=== PATIENT | female | born 1975 | race Caucasian/White ===

== ENCOUNTER 2019-08-29 11:57 | Emergency (ER) | payer OTHER, SELFPAY ==
[2019-08-29 12:00] VITALS: BP 150/97; PULSE 88; RESP 13; TEMP 36.7; O2SAT 98
[2019-08-29 15:00] VITALS: BP 154/96; PULSE 87; RESP 20; O2SAT 96
--- NOTE | 2019-08-29 15:52 | DI.CT.S_ITS ---
PROCEDURE: CT HEAD/BRAIN WO CON INDICATIONS: sudden vertigo TECHNIQUE: Noncontrast 4.5 mm thick angled axial sections acquired from the foramen magnum to the vertex, with coronal and sagittal reformats. For radiation dose reduction, the following was used: automated exposure control, adjustment of mA and/or kV according to patient size. COMPARISON: None. FINDINGS: Image quality: Excellent. CSF spaces: Basal cisterns are patent. No extra-axial fluid collections. Ventricles are normal in size and shape. Brain: No midline shift. No intracranial masses or hemorrhage. Blackmon-white matter interface is normal. Skull and face: Calvarium and visualized facial bones are intact, without suspicious lesions. Sinuses: Visualized sinuses and mastoids are clear. No middle ear fluid is seen. IMPRESSION: Normal noncontrast head CT, without an imaging explanation for patient's presenting symptoms of sudden vertigo. Dictated by: Mauricio Thomas M.D. on 08/29/2019 at 15:07 Approved by: Mauricio Thomas M.D. on 08/29/2019 at 15:08
[2019-08-29] MEDS: MECLIZINE HCL 12.5 MG TABLET 50 MG PO (16:21)
[2019-08-29 16:24] LABS: Add Manual Diff / Slide Review NO; Basophils Absolute Auto 100 /uL (0-100); Basophils Percent Auto 0.8 % (0-2); Eosinophils Absolute Auto 200 /uL (0-450); Eosinophils Percent Auto 1.4 % (2-4); Hematocrit 42.3 % (36-46); Hemoglobin 14.3 g/dL (12.0-16.0); Lymphocytes Absolute Auto 4600 /uL (1100-4500); Lymphocytes Percent Auto 41.5 % (25-40); Mean Corpuscular HGB Conc 33.8 % (30-36); Mean Corpuscular Hemoglobin 30.2 PG (26-34); Mean Corpuscular Volume 89.1 fL (80-100); Monocytes Absolute Auto 600 /uL (0-900); Monocytes Percent Auto 5.8 % (3-14); Neutrophils Absolute Auto 5600 /uL (1500-7000); Neutrophils Percent Auto 50.5 % (50-75); Platelet Count 369 X10^3/uL (150-400); Red Blood Cell Count 4.74 X10^6/uL (4.0-5.2); Red Cell Distribution Width 13.5 % (11.6-14.8); White Blood Cell Count 11.2 X10^3/uL (4.5-11.0)
[2019-08-29 16:39] LABS: Alanine Aminotransferase 24 IU/L (9-52); Albumin 4.6 g/dL (3.5-5.0); Albumin Globulin Ratio 1.2 (1.0-2.8); Alkaline Phosphatase 66 U/L (38-126); Aspartate Aminotransferase 27 IU/L (14-36); Bilirubin Total 0.3 mg/dL (0.2-1.3); Blood Urea Nitrogen 14 mg/dL (7-17); Carbon Dioxide 27 mmol/L (22-32); Chloride 103 mmol/L (98-107); Creatine Kinase 70 U/L (30-135); Estimated Glomerular Filt Rate > 60.0 mL/min (>60); Globulin 3.7 g/dL (1.7-4.1); Glucose 93 mg/dL (70-100); HEMOLYSIS < 15 (0-50); Potassium 4.1 mmol/L (3.4-5.1); Sodium 139 mmol/L (137-145); Total Protein 8.3 g/dL (6.3-8.2)
[2019-08-29 16:50] LABS: Troponin I < 0.012 ng/mL (0.01-0.034)
[2019-08-29 17:31] LABS: Influenza A and B by PCR Rapid Negative (Negative)
--- NOTE | 2019-08-29 17:35 | ED_ITS ---
HPI - Dizziness <VIRI Bills - Last Filed: 08/29/19 18:06> General Chief Complaint: Dizziness Stated Complaint: Dizziness,lighthead,fatigue Time Seen by Provider: 08/29/19 15:18 Source: patient and family Mode of arrival: Ambulatory Limitations: no limitations History of Present Illness HPI Narrative: The patient is a 44-year-old female nonsmoker with history of insomnia and sleep apnea who presents with a chief complaint of spinning sensation and dizziness that had sudden onset on Thursday. She states the spinning sensation occurs when she turns her head, or has a change in position. 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 She does state that she has chronic right ear issues and has a history of right ear infections. She does not have any ear pain at this point time. She denies any chest pain, shortness of breath, fever nausea vomiting or diarrhea. She denies any sore throat. The patient states that her she does have a family history of stroke, but notes no neurological deficit, states dizziness on occasion. She denies any slurred speech. Her is with her and states that she has been acting normal. Related Data Home Medications Medication Instructions Recorded Confirmed losartan-hydrochlorothiazide 1 tab PO DAILY 08/29/19 Previous Rx's Medication Instructions Recorded meclizine 50 mg PO TID PRN #20 tab 08/29/19 Allergies Allergy/AdvReac Type Severity Reaction Status Date / Time No Known Drug Allergies Allergy Unverified 08/03/19 14:41 Review of Systems <VIRI Bills - Last Filed: 08/29/19 18:06> Review of Systems Narrative: GENERAL: Denies chills, fatigue, malaise, fever, sweats. HEENT: See HPI RESPIRATORY: Denies dyspnea, cough, wheezing, hemoptysis, sputum. CARDIOVASCULAR: Denies chest pain, palpitations, orthopnea, edema, GASTROINTESTINAL: Denies nausea, vomiting, abdominal pain, diarrhea, constipation, melena. : Denies dysuria, frequency, incontinence, hematuria, urinary retention. MUSCULOSKELETAL: denies weakness, joint pain, or bony pain SKIN: Denies rash, skin lesions, or other NEUROLOGIC: See HPI PSYCHIATRIC: No concerning psychosocial issues. 12 point review of systems is negative except for those stated above PFSH <VIRI Bills - Last Filed: 08/29/19 18:06> Social History Smoking Status: Former smoker Exam <Leny BarahonaANN-BC - Last Filed: 08/29/19 18:06> Narrative Exam Narrative: GENERAL: This is a well-nourished, well-developed patient, in mild distress. HEAD: Atraumatic. Normocephalic. No temporal or scalp tenderness. EYES: Pupils equal round and reactive. Extraocular motions intact. No scleral icterus. No injection or drainage. ENT: Nose without bleeding, purulent drainage or septal hematoma. Throat without erythema, tonsillar hypertrophy or exudate. Uvula midline. Airway patent. Bilateral TMs tense, but pearly blackmon. No noted abnormality bilateral ear canals. NECK: Trachea midline. No JVD or lymphadenopathy. Supple, nontender, no meningeal signs. CARDIOVASCULAR: Regular rate and rhythm without murmurs, gallops, or rubs. RESPIRATORY: Clear to auscultation. Breath sounds equal bilaterally. No wheezes, rales, or rhonchi. No cough. No increased respiratory effort. No accessory muscle use. GASTROINTESTINAL: Abdomen soft, non-tender, nondistended. No hepato- splenomegaly, or palpable masses. No guarding. EXTREMITIES: No clubbing, cyanosis, or edema. No joint tenderness, effusion, or edema noted. BACK: Nontender without deformity or crepitance. No flank tenderness. NEURO: AOx3. No slurred speech. Clear speech. Cranial nerves grossly intact. Strength is equal upper and lower extremities bilaterally. Steady gait. Negative Romberg. SKIN: No rash or erythema on visible skin. Initial Vital Signs Initial Vital Signs: Vital Signs Temperature 98.1 F 08/29/19 12:00 Pulse Rate 88 08/29/19 12:00 Respiratory Rate 13 08/29/19 12:00 Blood Pressure 150/97 H 08/29/19 12:00 Pulse Oximetry 98 08/29/19 12:00 <Leny Samuels DO - Last Filed: 08/29/19 19:46> Initial Vital Signs Initial Vital Signs: Vital Signs Temperature 98.1 F 08/29/19 12:00 Pulse Rate 88 08/29/19 12:00 Respiratory Rate 13 08/29/19 12:00 Blood Pressure 150/97 H 08/29/19 12:00 Pulse Oximetry 98 08/29/19 12:00 Course <VIRI Bills - Last Filed: 08/29/19 18:06> Orders Ordered: ED Orders 08/29/19 15:52 CT head/brain wo con Stat EKG-12 Lead Stat 08/29/19 16:18 Complete Blood Count AUTO DIFF Stat Comprehensive Metabolic Panel Stat Magnesium Stat Troponin & CK Cardiac Panel Stat 08/29/19 17:05 Influenza A and B by PCR Rapid Stat Discontinued Medications Meclizine HCl (Antivert) 50 mg PO NOW ONE Stop: 08/29/19 15:54 Last Admin: 08/29/19 16:21 Dose: 50 mg Documented by: JESSICA Vital Signs Vital signs: Vital Signs - 8 hr 08/29/19 12:00 08/29/19 15:00 08/29/19 18:00 Temperature 98.1 F Pulse Rate 88 87 84 Respiratory Rate 13 20 16 Blood Pressure 150/97 H 145/80 H Blood Pressure [Left Arm] 154/96 H Pulse Oximetry 98 96 98 <Leny Samuels DO - Last Filed: 08/29/19 19:46> Orders Ordered: ED Orders 08/29/19 15:52 CT head/brain wo con Stat EKG-12 Lead Stat 08/29/19 16:18 Complete Blood Count AUTO DIFF Stat Comprehensive Metabolic Panel Stat Magnesium Stat Troponin & CK Cardiac Panel Stat 08/29/19 17:05 Influenza A and B by PCR Rapid Stat Discontinued Medications Meclizine HCl (Antivert) 50 mg PO NOW ONE Stop: 08/29/19 15:54 Last Admin: 08/29/19 16:21 Dose: 50 mg Documented by: JESSICA Vital Signs Vital signs: Vital Signs - 8 hr 08/29/19 12:00 08/29/19 15:00 08/29/19 18:00 Temperature 98.1 F Pulse Rate 88 87 84 Respiratory Rate 13 20 16 Blood Pressure 150/97 H 145/80 H Blood Pressure [Left Arm] 154/96 H Pulse Oximetry 98 96 98 MDM - Dizziness <VIRI Bills - Last Filed: 08/29/19 18:06> Lab Data Result diagrams: 08/29/19 16:18 08/29/19 16:18 Labs: Lab Results 08/29/19 08/29/1919 Range/Units 16:18 16:18 17:05 WBC 11.2 H (4.5-11.0) X10^3/uL RBC 4.74 (4.0-5.2) X10^6/uL Hgb 14.3 (12.0-16.0) g/dL Hct 42.3 (36-46) % MCV 89.1 (80-100) fL MCH 30.2 (26-34) PG MCHC 33.8 (30-36) % RDW 13.5 (11.6-14.8) % Plt Count 369 (150-400) X10^3/uL Neut % (Auto) 50.5 (50-75) % Lymph % (Auto) 41.5 H (25-40) % Allen % (Auto) 5.8 (3-14) % Eos % (Auto) 1.4 L (2-4) % Baso % (Auto) 0.8 (0-2) % Neut # (Auto) 5600 (9594-1313) /uL Lymph # (Auto) 4600 H (3166-5149) /uL Allen # (Auto) 600 (0-900) /uL Eos # (Auto) 200 (0-450) /uL Baso # (Auto) 100 (0-100) /uL Sodium 139 (137-145) mmol/L Potassium 4.1 (3.4-5.1) mmol/L Chloride 103 (98-107) mmol/L Carbon Dioxide 27 (22-32) mmol/L BUN 14 (7-17) mg/dL Creatinine 0.70 (0.52-1.04) mg/dL Estimated GFR > 60.0 (>60) mL/min BUN/Creatinine Ratio 20.0 (6-22) Glucose 93 (70-100) mg/dL Calcium 10.0 (8.4-10.2) mg/dL Magnesium 2.0 (1.6-2.3) mg/dL Total Bilirubin 0.3 (0.2-1.3) mg/dL AST 27 (14-36) IU/L ALT 24 (9-52) IU/L Alkaline Phosphatase 66 (38-126) U/L Total Creatine Kinase 70 (30-135) U/L CK-MB (CK-2) TNP CK-MB (CK-2) Rel Index TNP Troponin I < 0.012 (0.01-0.034) ng/mL Total Protein 8.3 H (6.3-8.2) g/dL Albumin 4.6 (3.5-5.0) g/dL Globulin 3.7 (1.7-4.1) g/dL Albumin/Globulin Ratio 1.2 (1.0-2.8) Influenza A & B (PCR) Negative (Negative) Imaging Data CT scan - head: Radiologist's impression: [place] [address] CT Scan Report Signed Patient: Sima Orellana BMR#: [id number] : 1975Acct:[id number] Age/Sex: 44 / FDate of Service: 08/29/19 Loc: ED Accession Number: [id number] Procedure: CT head/brain wo con Ordering Provider: Leny Barahona TELESAL[employer] ADVISOR- PROCEDURE: CT HEAD/BRAIN WO CON INDICATIONS: sudden vertigo TECHNIQUE: Noncontrast 4.5 mm thick angled axial sections acquired from the foramen magnum to the vertex, with coronal and sagittal reformats. For radiation dose reduction, the following was used: automated exposure control, adjustment of mA and/or kV according to patient size. COMPARISON: None. FINDINGS: Image quality: Excellent. CSF spaces: Basal cisterns are patent. No extra-axial fluid collections. Ventricles are normal in size and shape. Brain: No midline shift. No intracranial masses or hemorrhage. Blackmon-white matter interface is normal. Skull and face: Calvarium and visualized facial bones are intact, without suspicious lesions. Sinuses: Visualized sinuses and mastoids are clear. No middle ear fluid is seen. IMPRESSION: Normal noncontrast head CT, without an imaging explanation for patient's presenting symptoms of sudden vertigo. Dictated by: Mauricio Thomas M.D. on 08/29/2019 at 15:07 Approved by: Mauricio Thomas M.D. on 08/29/2019 at 15:08 ECG Data Attestation: I personally reviewed and interpreted this ECG as follows: Interpretation: Sinus rhythm. Ventricular rate 70. No ST elevation or depression. No ectopy noted. P.r. interval 173. QRS duration 109. MDM Narrative Medical decision making narrative: The patient is a 44-year-old female who presents with a chief complaint of vertigo for the past 2 days. Given her family history, we did obtain a head CT to evaluate for stroke. She was treated with meclizine in the emergency department basic labs were drawn. Her labs came back with no acute abnormality. Her flu test came back negative. Her exam is overall benign. She is neurologically intact and has no focal neurological deficits. Her has symptoms and exam are consistent with vertigo. It is likely related to a virus given that multiple people at her work place have vertigo. I discussed at length rest, fluids, meclizine. Discussed following up with primary care provider. Discussed coming back to the emergency department for any acute concerns such as chest pain, shortness of breath concern of heart attack or stroke etc. Patient states no questions or concerns upon discharge and states understanding of return precautions as well as follow-up care. <Leny Samuels, DO - Last Filed: 08/29/19 19:46> Lab Data Labs: Lab Results 08/29/19 08/29/19 08/29/19 Range/Units 16:18 16:18 17:05 WBC 11.2 H (4.5-11.0) X10^3/uL RBC 4.74 (4.0-5.2) X10^6/uL Hgb 14.3 (12.0-16.0) g/dL Hct 42.3 (36-46) % MCV 89.1 (80-100) fL MCH 30.2 (26-34) PG MCHC 33.8 (30-36) % RDW 13.5 (11.6-14.8) % Plt Count 369 (150-400) X10^3/uL Neut % (Auto) 50.5 (50-75) % Lymph % (Auto) 41.5 H (25-40) % Allen % (Auto) 5.8 (3-14) % Eos % (Auto) 1.4 L (2-4) % Baso % (Auto) 0.8 (0-2) % Neut # (Auto) 5600 (0438-3963) /uL Lymph # (Auto) 4600 H (8380-3848) /uL Allen # (Auto) 600 (0-900) /uL Eos # (Auto) 200 (0-450) /uL Baso # (Auto) 100 (0-100) /uL Sodium 139 (137-145) mmol/L Potassium 4.1 (3.4-5.1) mmol/L Chloride 103 (98-107) mmol/L Carbon Dioxide 27 (22-32) mmol/L BUN 14 (7-17) mg/dL Creatinine 0.70 (0.52-1.04) mg/dL Estimated GFR > 60.0 (>60) mL/min BUN/Creatinine Ratio 20.0 (6-22) Glucose 93 (70-100) mg/dL Calcium 10.0 (8.4-10.2) mg/dL Magnesium 2.0 (1.6-2.3) mg/dL Total Bilirubin 0.3 (0.2-1.3) mg/dL AST 27 (14-36) IU/L ALT 24 (9-52) IU/L Alkaline Phosphatase 66 (38-126) U/L Total Creatine Kinase 70 (30-135) U/L CK-MB (CK-2) TNP CK-MB (CK-2) Rel Index TNP Troponin I < 0.012 (0.01-0.034) ng/mL Total Protein 8.3 H (6.3-8.2) g/dL Albumin 4.6 (3.5-5.0) g/dL Globulin 3.7 (1.7-4.1) g/dL Albumin/Globulin Ratio 1.2 (1.0-2.8) Influenza A & B (PCR) Negative (Negative) Discharge Plan Departure Patient Disposition: Home Clinical Impression: Vertigo Discharge Date/Time: 08/29/19 18:00 Instructions: DI for Vertigo Activity Restrictions/Additional Instructions: Today your lab work came back grossly normal, your head CT came back normal. It is likely that her vertigo is related to a virus going around her work place given that multiple coworkers have similar symptoms. Please rest and push fluids. I have given you a prescription of meclizine. I have given you a note for college. Given the congestion, I suggest treating her symptoms as well as sinus rinse and Flonase. Please come back to emergency department for any acute concerns such as chest pain, shortness of breath heart attack or stroke etc. Prescriptions: New meclizine 25 mg tablet 50 mg PO TID PRN (Reason: dizziness) Qty: 20 RF: 0 No Action losartan-hydrochlorothiazide 50-12.5 mg tablet 1 tab PO DAILY RF: 0 Referrals: Leny Calabrese DO [Primary Care Provider] -
[2019-08-29 18:00] VITALS: BP 145/80; PULSE 84; RESP 16; O2SAT 98
== END 2019-08-29 18:00 | disposition home or self-care (01) ==
PROVIDERS: Emergency Provider Nurse Practitioner Family; PCP Family Medicine
DX: R42 Dizziness and giddiness (principal)
CPT/HCPCS: 36415; 70450; 80053; 82550; 83735; 84484; 85025; 87400; 87502; 93005; 99282; 99285

== ENCOUNTER 2021-01-20 01:57 | Emergency (ER) | payer OTHER, SELFPAY ==
[2021-01-20] VITALS (8 sets, daily range): BP systolic 136–191; BP diastolic 81–97; PULSE 60–80; RESP 14–22; TEMP 36.8; O2SAT 96–99; BMI 37.8
--- NOTE | 2021-01-20 02:24 | ED_ITS ---
HPI - Chest Pain General Chief Complaint: Chest Pain Stated Complaint: chest/left arm pain/back pain Time Seen by Provider: 01/20/21 02:04 Source: patient Mode of arrival: Ambulatory Limitations: no limitations History of Present Illness HPI narrative: Patient is a 45-year-old female who has history of hypertension hyperlipidemia presenting today with left arm squeezing hand left-sided chest pain. She said it started while at dinner head. She says about every 5 minutes she has squeezing in for left arm and to the left side of her chest. Last from 30 seconds to 1 minute and resolves. She took ibuprofen without any relief. She says she is unable to get to sleep due to the discomfort. She has never experienced anything like this in the past. She denies any nausea diaphoresis or shortness of breath. No family history of coronary artery disease she herself does not have any known coronary artery disease. She did receive her moderna COVID vaccine #2, 4 days ago. She states she had initial arm pain and then within 24 hours she had body aches which then resolved she felt okay the day before and then this started this evening. MD complaint: chest pain Onset (ago): hour(s) Duration: intermittent Onset: during rest Pain location: left chest Severity: moderate Quality: other (Squeezing) Pain radiation: none Relieving factors: nothing Exacerbating factors: nothing Related Data Home Medications Medication Instructions Recorded Confirmed losartan-hydrochlorothiazide 1 tab PO DAILY 08/29/19 08/31/19 Previous Rx's Medication Instructions Recorded meclizine 50 mg PO TID PRN #20 tab 08/29/19 Allergies Allergy/AdvReac Type Severity Reaction Status Date / Time No Known Drug Allergies Allergy Unverified 08/31/19 11:52 Review of Systems Review of Systems Narrative: GENERAL: Denies chills, fatigue, malaise, fever, sweats, travel HEENT: Denies sinus pain, ear pain, sore throat, difficulty swallowing, neck pain RESPIRATORY: Denies dyspnea, cough, wheezing, hemoptysis, sputum. CARDIOVASCULAR: See HPI GASTROINTESTINAL: Denies nausea, vomiting, abdominal pain, diarrhea, constipation, melena. : Denies dysuria, frequency, incontinence, hematuria, urinary retention, flank pain. MUSCULOSKELETAL: Denies weakness, joint pain, or bony pain SKIN: No rash, no erythema, no pruritus NEUROLOGIC: Denies weakness, dizziness, headache, numbness, change in speech, confusion PSYCHIATRIC: No concerning psychosocial issues. 12 point review of systems is negative except for those stated above and HPI Patient History Medical History Hypertension Insomnia (~07/2019) Obstructive sleep apnea (~07/2019) Snoring Vertigo Social History Smoking Status: Former smoker Smoking Status: Former smoker alcohol intake frequency: 0-2 drinks per day Substance Use Type: does not use Exam Initial Vital Signs Initial Vital Signs: Vital Signs Temperature 98.2 F 01/20/21 02:07 Pulse Rate 79 01/20/21 02:07 Respiratory Rate 17 01/20/21 02:07 Blood Pressure 191/97 H 01/20/21 02:07 Pulse Oximetry 99 01/20/21 02:07 GENERAL: Alert pleasant 45-year-old female and in no acute distress. HEENT: Head atraumatic,EOMI, pupils reactive, face symmetric, moist mucous membranes CARDIOVASCULAR: Regular rate and rhythm without murmurs, rubs or gallops. RESPIRATORY: Breath sounds equal bilaterally, no wheezes rales or rhonchi. ABDOMEN: Soft, nontender. Normoactive bowel sounds all 4 quadrants. No guarding or rebound. EXTREMITIES: Normal range of motion, no clubbing or edema. Neurovascularly intact NEUROLOGICAL: Alert and oriented x4.Normal gait and speech. Cranial nerves II through XII grossly intact. SKIN: Warm, dry, no laceration, no petechiae, no rashes or lesions. Scores HEART Score Heart Score history: Moderately Suspicious Heart Score EKG: Normal Heart Score Age: 45-64 years old Heart Score risk factors: 1-2 risk factors Heart Score troponin: < or = to normal limit Heart Score Total: 3 Course Orders Ordered: ED Orders 01/20/21 02:00 EKG-12 Lead Routine 01/20/21 02:20 Complete Blood Count AUTO DIFF Stat 01/20/21 02:25 XR chest 1V Stat 01/20/21 02:47 Comprehensive Metabolic Panel Stat Lipase Stat Troponin & CK Cardiac Panel Stat 01/20/21 04:55 Troponin I Stat 01/20/21 05:27 EKG-12 Lead Routine Discontinued Medications Aspirin (Aspirin 81 Mg Chew Tab) 324 mg PO NOW ONE Stop: 01/20/21 02:26 Last Admin: 01/20/21 02:30 Dose: 324 mg Documented by: ELIZABETH Ibuprofen (Ibuprofen 400 Mg Tablet) 800 mg PO NOW ONE Stop: 01/20/21 04:19 Last Admin: 01/20/21 04:25 Dose: 800 mg Documented by: SAMSON Ketorolac Tromethamine (Ketorolac 60 Mg/2 Ml Vial) 30 mg IV NOW ONE Stop: 01/20/21 04:02 Last Admin: 01/20/21 04:06 Dose: Not Given Documented by: SAMSON Nitroglycerin (Nitroglycerin 0.4 Mg Sl Tab) 0.4 mg SL NOW ONE Stop: 01/20/21 04:02 Last Admin: 01/20/21 04:06 Dose: Not Given Documented by: SAMSON Vital Signs Vital signs: Vital Signs - 8 hr 01/20/21 02:07 01/20/21 02:32 01/20/21 03:00 Temperature 98.2 F Pulse Rate 79 80 65 Respiratory Rate 17 14 Blood Pressure 191/97 H 143/95 H Pulse Oximetry 99 98 96 01/20/21 03:30 01/20/21 04:00 01/20/21 04:30 Temperature Pulse Rate 72 76 60 Respiratory Rate 16 22 16 Blood Pressure 143/93 H 149/91 H 139/92 H Pulse Oximetry 97 98 98 01/20/21 05:00 01/20/21 05:30 Temperature Pulse Rate 62 69 Respiratory Rate 17 14 Blood Pressure 146/86 H 136/81 Pulse Oximetry 98 98 MDM - Chest Pain Lab Data Attestation: I reviewed the patient's lab results. Result diagrams: 01/20/21 02:20 01/20/21 02:47 Labs: Lab Results 01/20/21 01/20/21 01/20/21 Range/Units 02:20 02:47 04:55 WBC 9.8 (4.5-11.0) X10^3/uL RBC 4.32 (4.0-5.2) X10^6/uL Hgb 13.3 (12.0-16.0) g/dL Hct 39.2 (36-46) % MCV 90.6 (80-100) fL MCH 30.9 (26-34) PG MCHC 34.1 (30-36) % RDW 13.3 (11.6-14.8) % Plt Count 301 (150-400) X10^3/uL Neut % (Auto) 34.2 L (50-75) % Lymph % (Auto) 54.6 H (25-40) % [place] % (Auto) 7.5 (3-14) % Eos % (Auto) 3.0 (2-4) % Baso % (Auto) 0.7 (0-2) % Neut # (Auto) 3400 (8294-4364) /uL Lymph # (Auto) 5400 H (1821-1611) /uL [place] # (Auto) 700 (0-900) /uL Eos # (Auto) 300 (0-450) /uL Baso # (Auto) 100 (0-100) /uL Sodium 139 (137-145) mmol/L Potassium 3.9 (3.4-5.1) mmol/L Chloride 106 (98-107) mmol/L Carbon Dioxide 29 (22-32) mmol/L BUN 16 (7-17) mg/dL Creatinine 0.63 (0.52-1.04) mg/dL Estimated GFR > 60.0 (>60) mL/min BUN/Creatinine Ratio 25.4 H (6-22) Glucose 101 H (70-100) mg/dL Calcium 9.3 (8.4-10.2) mg/dL Total Bilirubin 0.2 (0.2-1.3) mg/dL AST 33 (14-36) IU/L ALT 43 H (<35) IU/L Alkaline Phosphatase 80 (38-126) U/L Total Creatine Kinase 105 (30-135) U/L CK-MB (CK-2) 0.88 (<2.37) ng/mL CK-MB (CK-2) Rel Index 0.8 L (1.5-5.0) % Troponin I < 0.012 < 0.012 (0.01-0.034) ng/mL Total Protein 7.2 (6.3-8.2) g/dL Albumin 4.0 (3.5-5.0) g/dL Globulin 3.2 (1.7-4.1) g/dL Albumin/Globulin Ratio 1.3 (1.0-2.8) Lipase 224 (23-300) U/L Imaging Data Chest x-ray: Radiologist's Impression: Preliminary report no acute abnormalities ECG Data Attestation: I personally reviewed and interpreted this ECG as follows: Prior ECG tracings: available for review Interpretation: Normal sinus rhythm rate 80 p.r. interval 178 QRS [address] changes no T-wave inversions similar to prior EKG EKG 2. Sinus rhythm rate 67 no changes from previous MDM Narrative Medical decision making narrative: Patient's symptoms do not seem to be reproduced with palpation or movement. Describes arm squeezing in her left upper arm and left upper chest area. It seems to be rather consistent ongoing for numerous hours she does have risk factors. Patient was given aspirin she was offered nitroglycerin but she declined. We were also unsuccessful at getting an IV and patient refused to allow is to try a 2nd time. She was agreeable to take ibuprofen possible musculoskeletal issue. She says after ibuprofen it seemed to be a dull ache but more consistent. She was able to sleep off and on during her stay in the emergency department. She has 2- troponins and no changes on her EKGs. I have discussed with her staying in the hospital for stress test unsure what is causing her pain. At this time she is declining and would rather go home. She understands that she needs to return to the emergency department at any time for changing or worsening pain. I discussed all findings with the patient, Education has been performed regarding treatment plan, diagnosis, warning signs and symptoms and all concerns have been addressed. Verbally agree with and understood all of the above. The patient is clinically sober, free from distracting injury, appears to have intact insight, judgment and reason. Does not meet criteria for involuntary hospitalization. Patient has the capacity to make decisions. Discharge Plan Departure Patient Disposition: Home Clinical Impression: Atypical chest pain Instructions: DI for Atypical Chest Pain Activity Restrictions/Additional Instructions: *You have been diagnosed with atypical chest pain *What to do: At this time I strongly recommend you follow-up with your primary care provider as soon as possible and have further cardiac testing such as a stress test. This was offered to in the emergency department however it was declined. Please return promptly to the nearest emergency department for any worsening or changing symptoms *Continue to take medications as directed Aspirin 81 mg daily *Follow up with your primary care provider in 2-3 days *Return to ER if you should have worsening or changing symptoms, shortness of breath, arm pain or any new, worsening or concerning symptoms Prescriptions: No Action losartan-hydrochlorothiazide 50-12.5 mg tablet 1 tab PO DAILY RF: 0 meclizine 25 mg tablet 50 mg PO TID PRN (Reason: dizziness) Qty: 20 RF: 0 Referrals: Leny Calabrese DO [Primary Care Provider] -
--- NOTE | 2021-01-20 02:25 | DI.RAD.S_ITS ---
PROCEDURE: XR CHEST 1V INDICATIONS: chest pain TECHNIQUE: One view of the chest was acquired. COMPARISON: None. FINDINGS: Surgical changes and devices: None. Lungs and pleura: Lungs are clear. No pleural effusions or pneumothorax. Mediastinum: Mediastinal contours appear normal. Heart size is normal. Bones and chest wall: No suspicious bony lesions. Overlying soft tissues appear unremarkable. IMPRESSION: No acute process. Concordant with preliminary interpretation. Dictated by: Ginna Henriquez M.D. on 01/20/2021 at 8:01 Approved by: Ginna Henriquez M.D. on 01/20/2021 at 8:02
[2021-01-20] MEDS: ASPIRIN 81 MG CHEW TAB 324 MG PO (02:30)
[2021-01-20 02:42] LABS: Add Manual Diff / Slide Review NO; Basophils Absolute Auto 100 /uL (0-100); Basophils Percent Auto 0.7 % (0-2); Eosinophils Absolute Auto 300 /uL (0-450); Hematocrit 39.2 % (36-46); Hemoglobin 13.3 g/dL (12.0-16.0); Lymphocytes Absolute Auto 5400 /uL (1100-4500); Lymphocytes Percent Auto 54.6 % (25-40); Mean Corpuscular HGB Conc 34.1 % (30-36); Mean Corpuscular Hemoglobin 30.9 PG (26-34); Mean Corpuscular Volume 90.6 fL (80-100); Monocytes Absolute Auto 700 /uL (0-900); Monocytes Percent Auto 7.5 % (3-14); Neutrophils Absolute Auto 3400 /uL (1500-7000); Neutrophils Percent Auto 34.2 % (50-75); Platelet Count 301 X10^3/uL (150-400); Red Blood Cell Count 4.32 X10^6/uL (4.0-5.2); Red Cell Distribution Width 13.3 % (11.6-14.8); White Blood Cell Count 9.8 X10^3/uL (4.5-11.0)
[2021-01-20 03:06] LABS: Alanine Aminotransferase 43 IU/L (<35); Albumin Globulin Ratio 1.3 (1.0-2.8); Alkaline Phosphatase 80 U/L (38-126); Aspartate Aminotransferase 33 IU/L (14-36); BUN Creatinine Ratio 25.4 (6-22); Bilirubin Total 0.2 mg/dL (0.2-1.3); Blood Urea Nitrogen 16 mg/dL (7-17); Calcium 9.3 mg/dL (8.4-10.2); Carbon Dioxide 29 mmol/L (22-32); Chloride 106 mmol/L (98-107); Creatine Kinase 105 U/L (30-135); Estimated Glomerular Filt Rate > 60.0 mL/min (>60); Globulin 3.2 g/dL (1.7-4.1); Glucose 101 mg/dL (70-100); HEMOLYSIS < 15 (0-50); Lipase 224 U/L (23-300); Potassium 3.9 mmol/L (3.4-5.1); Sodium 139 mmol/L (137-145); Total Protein 7.2 g/dL (6.3-8.2)
[2021-01-20 03:17] LABS: Troponin I < 0.012 ng/mL (0.01-0.034)
[2021-01-20 03:21] LABS: CKMB % Relative Index 0.8 % (1.5-5.0); Creatine Kinase MB 0.88 ng/mL (<2.37)
--- NOTE | 2021-01-20 04:06 | PC.NURSE ---
initial attempt at IV unsuccessful although blood obtained for lab. Per Dr Mullins, would like access. Pt refusing RN to try for IV line and refusing IM medications. Dr Mullins made aware and awaiting order for PO medications.
[2021-01-20] MEDS: IBUPROFEN 400 MG TABLET 800 MG PO (04:25)
[2021-01-20 05:25] LABS: Troponin I < 0.012 ng/mL (0.01-0.034)
== END 2021-01-20 06:08 | disposition home or self-care (01) ==
PROVIDERS: Emergency Provider Emergency Medicine; PCP Family Medicine
DX: R07.89 Other chest pain (principal); I10 Essential (primary) hypertension; E78.5 Hyperlipidemia, unspecified; M79.602 Pain in left arm
CPT/HCPCS: 36415; 71045; 80053; 82550; 82553; 83690; 84484; 85025; 93005; 99284

== ENCOUNTER → 2021-08-05 16:22 | Outpatient (CLI) | payer OTHER, SELFPAY ==
--- NOTE | 2021-08-05 16:24 | DI.RAD.S_ITS ---
PROCEDURE: XR KNEE RT 3V INDICATIONS: knee pain TECHNIQUE: 3 views of the knee were acquired. COMPARISON: None. FINDINGS: Bones: No fractures or dislocations. No suspicious bony lesions. Scattered degenerative subchondral sclerosis and spurring. Incidentally noted sessile exostosis involving the proximal fibula Soft tissues: No joint effusion. No suspicious soft tissue calcifications. IMPRESSION: Mild degenerative changes. If the patient's pain or other symptoms persist, consider further evaluation with MRI Dictated by: Vinod Khanna M.D. on 08/05/2021 at 17:02 Approved by: Vinod Khanna M.D. on 08/05/2021 at 17:15
== END ==
PROVIDERS: PCP Family Medicine; Referring Provider Nurse Practitioner Family; Visit Provider Nurse Practitioner Family
DX: S86.911A Strain of unspecified muscle(s) and tendon(s) at lower leg level, right leg, initial encounter (principal); M25.561 Pain in right knee; X58.XXXA Exposure to other specified factors, initial encounter
CPT/HCPCS: 73562

== ENCOUNTER 2022-04-04 17:03 | Emergency (ER) | payer OTHER, SELFPAY ==
[2022-04-04 17:29] VITALS: BP 144/89; PULSE 79; RESP 18; TEMP 36.8; O2SAT 98; BMI 36.0
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
[2022-04-04 19:27] VITALS: BP 142/95; PULSE 79; RESP 18; O2SAT 97
== END 2022-04-04 19:29 | disposition home or self-care (01) ==
PROVIDERS: Emergency Provider Emergency Medicine; PCP Family Medicine
DX: S00.83XA Contusion of other part of head, initial encounter (principal); Y04.2XXA Assault by strike against or bumped into by another person, initial encounter; Y99.0 Civilian activity done for income or pay
CPT/HCPCS: 70450; 70486; 99281; 99284

== ENCOUNTER → 2022-05-28 16:51 | Outpatient (CLI) | payer OTHER, SELFPAY | PROVIDERS: PCP Family Medicine; Visit Provider Physician Assistant | DX: J02.9 Acute pharyngitis, unspecified (principal) | CPT/HCPCS: 87070 ==

== ENCOUNTER → 2025-01-23 13:02 | Outpatient (CLI) | payer OTHER, SELFPAY ==
--- NOTE | 2025-01-23 13:04 | DI.US.S_ITS ---
PROCEDURE: US PELVIC COMPLETE INDICATIONS: Hx of positive HPV/Pelvic pain/LMP 2020 w/active bleeding TECHNIQUE: Real-time scanning was performed of the pelvic organs, with image documentation. Additional endovaginal scanning was necessary due to incomplete visualization of the adnexal and endometrial structures by transabdominal scanning. COMPARISON: None. FINDINGS: Uterus: Uterus is anteverted and normal in size at 8.5 x 4.0 x 5.3 cm. The myometrium is homogeneous. The endometrium measures 9.3 mm combined thickness. Right anterior intramural focus heterogeneous echogenicity measuring 9 mm. Ovaries: The right ovary measures 2.1 x 1.2 x 1.4 cm, with a calculated ovarian volume of 1.8 cc. The left ovary is not visualized. Other: No pathologic free abdominal or pelvic fluid. IMPRESSION: Focus of heterogeneous echogenicity within the uterus likely small fibroid. We strive to produce accurate, complete, and clear reports of imaging services. To assist us in improving patient care, this report was composed using standard report templates and voice recognition software. Therefore, it may contain abnormal punctuation, insertions and/or omissions. Occasional wrong-word or sound-alike substitutions may occur. Though we review the report and make efforts to correct it, we do recommend that the report be read carefully in proper context to recognize any text inaccuracies. Dictated by: Ellen Pearce M.D. on 01/23/2025 at 17:28 Approved by: Ellen Pearce M.D. on 01/23/2025 at 17:29
== END ==
LOC: US 13:03
PROVIDERS: PCP Family Medicine; Referring Provider Family Medicine; Visit Provider Family Medicine
DX: N92.4 Excessive bleeding in the premenopausal period (principal); R10.2 Pelvic and perineal pain; G89.29 Other chronic pain
CPT/HCPCS: 76830; 76856

== ENCOUNTER → 2025-02-04 07:36 | Outpatient (CLI) | payer OTHER, SELFPAY ==
[2025-02-04 09:08] LABS: Hemoglobin A1C% w Est Avg Glu 4.9 % (4.0-6.0)
[2025-02-04 09:14] LABS: Alanine Aminotransferase 34 IU/L (<35); Albumin 4.5 g/dL (3.5-5.0); Albumin Globulin Ratio 1.5 (1.0-2.8); Alkaline Phosphatase 50 U/L (38-126); Aspartate Aminotransferase 33 IU/L (14-36); BUN Creatinine Ratio 17.1 (6-22); Bilirubin Total 0.5 mg/dL (0.2-1.3); Blood Urea Nitrogen 13 mg/dL (7-17); Calcium 9.7 mg/dL (8.4-10.2); Carbon Dioxide 25 mmol/L (22-32); Chloride 105 mmol/L (98-107); Cholesterol 280 mg/dL (140-199); Estimated Glomerular Filt Rate > 60 mL/min (>60); Glucose 97 mg/dL (70-100); HDL Cholesterol 64 mg/dL (40-60); HEMOLYSIS < 15 (0-50); LDL Cholesterol Calculated 181 mg/dL (<100); Potassium 4.9 mmol/L (3.4-5.1); Sodium 137 mmol/L (137-145); Total Protein 7.5 g/dL (6.3-8.2); Triglycerides 175 mg/dL (35-150)
[2025-02-04 09:16] LABS: Creatinine Urine Random 84.62 mg/dL
[2025-02-04 09:23] LABS: Microalbumin Urine Random < 0.6 mg/dL (0-1.6)
== END ==
PROVIDERS: PCP Family Medicine; Referring Provider Family Medicine; Visit Provider Family Medicine
DX: E88.819 Insulin resistance, unspecified (principal); I10 Essential (primary) hypertension
CPT/HCPCS: 36415; 80053; 80061; 82043; 82570; 83036

== ENCOUNTER → 2025-03-21 15:09 | Outpatient (CLI) | payer OTHER, SELFPAY ==
--- NOTE | 2025-03-21 15:10 | DI.RAD.S_ITS ---
PROCEDURE: XR KNEE LT 3V INDICATIONS: knee pain TECHNIQUE: 3 views of the knee were acquired. COMPARISON: [facility], CR, XR KNEE RT 3V, 08/05/2021, 16:27. FINDINGS: Bones: No fractures or dislocations. No suspicious bony lesions. Mild medial tibiofemoral and patellofemoral compartment narrowing with associated osteophytosis. Soft tissues: Small joint effusion. No suspicious soft tissue calcifications. IMPRESSION: KL grade 2 bicompartmental osteoarthritis without evidence of acute osseous abnormality. Small joint effusion. Dictated by: Jude Goodman M.D. on 03/22/2025 at 2:13 Approved by: Jude Goodman M.D. on 03/22/2025 at 2:14
== END ==
PROVIDERS: Family Provider Family Medicine; PCP Family Medicine; Referring Provider Family Medicine; Visit Provider Family Medicine
DX: M17.12 Unilateral primary osteoarthritis, left knee (principal); M25.462 Effusion, left knee; M25.569 Pain in unspecified knee
CPT/HCPCS: 73562

== ENCOUNTER 2025-03-26 20:36 | Emergency (ER) | payer OTHER, SELFPAY ==
[2025-03-26 20:46] VITALS: BP 163/104; PULSE 84; RESP 16; TEMP 36.9; O2SAT 99; BMI 33.5
--- NOTE | 2025-03-26 20:50 | DI.RAD.S_ITS ---
PROCEDURE: XR KNEE LT 3V INDICATIONS: pain, pop in knee today TECHNIQUE: 3 views of the knee were acquired. COMPARISON: [facility], CR, XR KNEE LT 3V, 03/21/2025, 15:09. FINDINGS: Bones: No acute fractures or dislocations. No suspicious bony lesions. Minimal medial compartment degenerative changes. Soft tissues: Small joint effusion. No suspicious soft tissue calcifications. IMPRESSION: Small joint effusion. No acute osseous abnormality. If there is continued clinical concern or persistent symptoms, repeat radiographs or cross-sectional imaging (e.g. CT, MRI) may be helpful for further evaluation. Approved by: Eric Palomino M.D. on 03/26/2025 at 21:18
--- NOTE | 2025-03-26 21:48 | PC.NURSE ---
Pt states that she has been working with her PCP about this left knee pain, she states that she has a knee sleeve. However, she did not have a knee immobilizer or anything given to her at PCP follow up. Today while walking her dog she felt a pop. Pt states that her right knee she did have a MCL tear. She states that this feels the same.
--- NOTE | 2025-03-26 22:17 | ED_ITS ---
HPI - Extremity Injury (Lower) General Chief Complaint: Extremity Injury, Lower Stated Complaint: left knee px Time Seen by Provider: 03/26/25 21:00 Source: patient Mode of arrival: Ambulatory History of Present Illness HPI Narrative: 49-year-old female history of hypertension insomnia obstructive sleep apnea chronic pelvic pain history of bilateral gastrocnemius surgery for plantar fasciitis in 2011 seen recently for left-sided knee pain by PCP for which x-ray was completed at time PT and anti-inflammatory pain medicine given presents today while walking dog felt a twinge and then having difficulty bearing weight and bending her left knee. However when she is sitting down or lying down she can bend the left knee. Other than what is stated 14 point review of system is negative Related Data Home Medications Medication Instructions Recorded Confirmed progesterone/estradiol PO 05/01/22 03/08/25 baclofen 10 mg tablet 10 mg PO DAILY 02/17/24 03/08/25 minoxidil 10 mg tablet 5 mg PO DAILY 02/17/24 03/08/25 alprazolam 1 mg tablet (Xanax) 1 mg PO DAILY 01/16/25 03/08/25 Previous Rx's Medication Instructions Recorded melatonin 3 mg capsule 3 mg PO BEDTIME PRN sleep #90 caps 05/01/22 bupropion HCl 150 mg 24 hr tablet, 150 mg PO DAILY #90 tabs 01/16/25 extended release lisdexamfetamine 40 mg capsule 40 mg PO DAILY #30 caps 01/16/25 (Vyvanse) losartan 100 mg tablet 100 mg PO DAILY #90 tabs 01/16/25 metformin 750 mg tablet,extended 750 mg PO DAILY #90 tabs 01/16/25 release 24 hr minoxidil 10 mg tablet 10 mg PO DAILY #90 tabs 01/16/25 progesterone micronized 200 mg 400 mg (2 x 200 mg) PO DAILY #90 01/16/25 capsule caps estradiol 0.0375 mg/24 hr 1 patch transdermal 2XW #8 ea 01/27/25 semiweekly transdermal patch (Vivelle-Dot) pravastatin 20 mg tablet 20 mg PO DAILY #90 tabs 02/22/25 tirzepatide 7.5 mg/0.5 mL 7.5 mg (0.5 mL) SUBCUT QWEEK #2 mL 03/15/25 subcutaneous pen injector ketorolac 10 mg tablet 10 mg PO Q6H PRN pain #20 tabs 03/26/25 Allergies Allergy/AdvReac Type Severity Reaction Status Date / Time No Known Drug Allergies Allergy Verified 03/26/25 20:46 Review of Systems Review of Systems ROS Unobtainable: All systems reviewed & are unremarkable except as noted in HPI and below Patient History Medical History (Updated 03/26/25 @ 22:32 by Lee Holm, DO) Rosacea (~2016) Melanoma (~2019) Acne (~1982) Sleep apnea (~2018) Depression (~1991) Anxiety (~1997) ADHD Foot pain (~2001) Carpal tunnel syndrome (~2011) Chicken pox (~1975) Vertigo (~2019) Painful menstrual periods (~1997) Ovarian cyst (~2014) Human papilloma virus (~2020) Fibroids Pancreatitis (~2015) Hypertension (~2002) Vertigo Insomnia (~07/2019) Obstructive sleep apnea (~07/2019) Surgical History (Updated 06/21/24 @ 08:15 by Anyi Rodrigues) Anesthesia History of removal of laparoscopic gastric banding device History of surgery Gastrocnemius muscle tear History of carpal tunnel release History of cholecystectomy History of tubal ligation History of hernia repair History of tonsillectomy History of appendectomy Family History (System 06/21/24 @ 08:15 by Anyi Rodrigues) Father Diabetes mellitus Hyperlipidemia Mother Atrial fibrillation Hypertension Grandfather Hyperlipidemia Grandmother Hyperlipidemia Hypertension Grandfather Cancer Grandmother COPD (chronic obstructive pulmonary disease) Smoking Status: Former smoker alcohol intake frequency: 0-2 drinks per day Exam Narrative Exam Narrative: GENERAL: [49] year old patient appears stated age. Well-developed patient, in mild distress. HEAD: Atraumatic. Normocephalic. EYES: Pupils equal round and reactive. Extraocular motions intact. No scleral icterus. No injection or drainage. EXTREMITIES: No edema. L knee varus, valgus, anterior, posterior, drawer test intact, Caterina and Terir intact motor/sensory intact +2DP +2PT cap refill <2secs BACK: Nontender without deformity or crepitance. No flank tenderness. NEURO: AOx3. GCS 15 SKIN: No rash or erythema of visible areas Initial Vital Signs Initial Vital Signs: Vital Signs Temperature 98.5 F 03/26/25 20:46 Pulse Rate 84 03/26/25 20:46 Respiratory Rate 16 03/26/25 20:46 Blood Pressure 163/104 H 03/26/25 20:46 Pulse Oximetry 99 03/26/25 20:46 Oxygen Delivery Method Room Air 03/26/25 20:46 Course Orders Ordered: ED Orders 03/26/25 20:50 XR knee LT 3V Stat Vital Signs Vital signs: Vital Signs - 8 hr 03/26/25 20:46 Temperature 98.5 F Pulse Rate 84 Respiratory Rate 16 Blood Pressure 163/104 H Pulse Oximetry 99 Oxygen Delivery Method Room Air MDM - Extremity Injury (Lower) Imaging Data Extremity x-ray #1: Radiologist's Impression: [address] [address] XRay Report Signed Patient: Sima Brown MR#: [id number] : 1975 Acct:[id number] Age/Sex: 49 / F Date of Service: 03/26/25 Loc: ED Accession Number: [id number] Procedure: XR knee LT 3V Ordering Provider: Lee Holm D.O. PROCEDURE: XR KNEE LT 3V INDICATIONS: pain, pop in knee today TECHNIQUE: 3 views of the knee were acquired. COMPARISON: [facility], , XR KNEE LT 3V, 03/21/2025, 15:09. FINDINGS: Bones: No acute fractures or dislocations. No suspicious bony lesions. Minimal medial compartment degenerative changes. Soft tissues: Small joint effusion. No suspicious soft tissue calcifications. IMPRESSION: Small joint effusion. No acute osseous abnormality. If there is continued clinical concern or persistent symptoms, repeat r adiographs or cross-sectional imaging (e.g. CT, MRI) may be helpful for further evaluation. [facility] Narrative Medical decision making narrative: Vital signs nurse triage note medication list previous ER and PCP visits and previous imaging modalities all reviewed. X-ray today showed small joint effusion no acute process otherwise. Differential diagnosis includes fracture, dislocation, arthritis, meniscus, or ligament injury. DC home on diclofenac prescription and to follow up with PCP this week. Discharge Plan Departure Patient Disposition: Home Clinical Impression: Acute knee pain Qualifiers: Laterality: left Qualified Code(s): M25.562 - Pain in left knee Instructions: DI for Knee Pain Activity Restrictions/Additional Instructions: Return with new or worsening symptoms. Take your medicines as directed. Follow up with PCP this week. Prescriptions: New ketorolac 10 mg tablet 10 mg PO Q6H PRN (Reason: pain) Qty: 20 0RF Rx Instructions: maximum total duration of 5 days from all oral, intranasal, or parenteral formulations No Action alprazolam [Xanax] 1 mg tablet 1 mg PO DAILY progesterone micronized 200 mg capsule 400 mg PO DAILY Qty: 90 3RF losartan 100 mg tablet 100 mg PO DAILY Qty: 90 3RF bupropion HCl 150 mg tablet extended release 24 hr 150 mg PO DAILY Qty: 90 3RF metformin 750 mg tablet extended release 24 hr 750 mg PO DAILY Qty: 90 3RF minoxidil 10 mg tablet 10 mg PO DAILY Qty: 90 3RF lisdexamfetamine [Vyvanse] 40 mg capsule 40 mg PO DAILY Qty: 30 0RF pravastatin 20 mg tablet 20 mg PO DAILY Qty: 90 3RF tirzepatide 7.5 mg/0.5 mL pen injector 7.5 mg SUBCUT QWEEK Qty: 2 3RF Rx Instructions: Med OK to compound, inject 7.5 mg subQ weekly for 4 weeks then increase to 10mg subq weekly for 4 weeks minoxidil 10 mg tablet 5 mg PO DAILY baclofen 10 mg tablet 10 mg PO DAILY estradiol [Vivelle-Dot] 0.0375 mg/24 hr patch semiweekly 1 patch transdermal 2XW Qty: 8 0RF Rx Instructions: apply 1 patch for 3 days alternating with 1 patch for 4 days each week progesterone/estradiol PO melatonin 3 mg capsule 3 mg PO BEDTIME PRN (Reason: sleep) Qty: 90 0RF Referrals: Monica Quiroga MD [Primary Care Provider] - Stand Alone Forms: Patient Portal/API/Survey
[2025-03-26 22:50] VITALS: BP 163/83; PULSE 75; RESP 17; O2SAT 98
== END 2025-03-26 22:50 | disposition home or self-care (01) ==
PROVIDERS: Emergency Provider Family Medicine; Family Provider Family Medicine; PCP Family Medicine
DX: M25.562 Pain in left knee (principal)
CPT/HCPCS: 73562; 99281; 99283

== ENCOUNTER → 2025-04-08 07:34 | Outpatient (CLI) | payer OTHER, SELFPAY ==
--- NOTE | 2025-04-08 07:35 | DI.MRI.S_ITS ---
PROCEDURE: MR KNEE LT WO CON INDICATIONS: Left knee pain. heard/felt popping sound with recent injury. TECHNIQUE: Noncontrast sagittal PD fast spin echo and T2 fast spin echo with fat saturation, sagittal 3-D FLASH with fat saturation; coronal T1 spin echo and PD fast spin echo with fat saturation, and axial PD fast spin echo with fat saturation through the knee. COMPARISON: [facility], CR, XR KNEE LT 3V, 03/26/2025, 20:47. FINDINGS: Image quality: Fair; motion artifact limits evaluation to some extent. Bones: Mild subchondral marrow edema with subchondral cyst formation is present at the anterior medial femoral condyle (8/17). The bone marrow signal is otherwise normal. There is no acute fracture or dislocation. Joints: There is a small knee joint effusion. There is no significant knee osteoarthritis. Severino's cyst: None. Menisci: There is intrasubstance signal at the body of the medial meniscus, in conjunction with a full-thickness radial tear between the posterior horn-posterior root junction (13/24). There is 4 mm of meniscal body extrusion into the medial gutter (13/21). There is intrasubstance signal at the body of the lateral meniscus, which does not meet criteria for a tear. The posterior root attachment for the lateral meniscus is intact. Cruciate ligaments: The anterior cruciate ligament is normal. There is a partial split tear of the posterior cruciate ligament as it approaches the femoral attachment site (13/22). Collateral ligaments: There is mild intermediate signal along the middle segment of the medial patellofemoral ligament (8/15), without focal tearing at its attachment points. The medial collateral ligament complex is otherwise normal. The lateral collateral ligament complex is normal. Popliteus Muscle/Tendon: The popliteus muscle and tendon are normal. Extensor mechanism: There is mild low signal thickening of the quadriceps tendon. The patellar tendon is normal. The medial and lateral patellar retinacular attachments are normal. Articular cartilage: Deep partial thickness chondral fissuring is present at the medial patellar facet (8/10). Other: No other acute findings. IMPRESSION: 1. Radial tear at the posterior horn-posterior root junction of the medial meniscus, along with intrasubstance degeneration at the body, and 4 mm of meniscal body extrusion. 2. Intrasubstance degeneration at the body of the lateral meniscus. 3. Partial split tear of the posterior cruciate ligament near its femoral attachment site. 4. Mild sprain of the medial patellofemoral ligament at the midsubstance. 5. Mild quadriceps tendinosis. 6. Articular cartilage defects at the medial patellofemoral compartment, without significant osteoarthritis at this time. Dictated by: Jude Fields M.D. on 04/08/2025 at 18:12 Approved by: Jude Fields M.D. on 04/08/2025 at 18:21
== END ==
PROVIDERS: Family Provider Family Medicine; PCP Family Medicine; Referring Provider Family Medicine; Visit Provider Family Medicine
DX: S83.232A Complex tear of medial meniscus, current injury, left knee, initial encounter (principal); S83.522A Sprain of posterior cruciate ligament of left knee, initial encounter; S83.8X2A Sprain of other specified parts of left knee, initial encounter; R29.898 Other symptoms and signs involving the musculoskeletal system; M25.362 Other instability, left knee; M25.462 Effusion, left knee; M25.562 Pain in left knee; X58.XXXA Exposure to other specified factors, initial encounter
CPT/HCPCS: 73721

== ENCOUNTER 2025-05-16 11:30 | Outpatient (RCR) | payer OTHER, SELFPAY ==
--- NOTE | 2025-04-11 17:10 | PT.OIE ---
Current Diagnoses Other chronic pain (04/11/25) Pain in right hip (04/11/25) Muscle weakness (generalized) (04/11/25) Pelvic and perineal pain (04/11/25) Past Medical History (This Medical Record has been edited. Action required.) Acne (~1982) ADHD Anxiety (~1997) Carpal tunnel syndrome (~2011) Chicken pox (~1975) Depression (~1991) Fibroids Foot pain (~2001) Human papilloma virus (~2020) Hypertension (~2002) Insomnia (~07/2019) Melanoma (~2019) Obstructive sleep apnea (~07/2019) Ovarian cyst (~2014) Painful menstrual periods (~1997) Pancreatitis (~2015) Rosacea (~2016) Sleep apnea (~2018) Vertigo Vertigo (~2019) Past Surgical History (This Medical Record has been edited. Action required.) Anesthesia Gastrocnemius muscle tear History of appendectomy History of carpal tunnel release History of cholecystectomy History of hernia repair History of removal of laparoscopic gastric banding device History of surgery History of tonsillectomy History of tubal ligation Visit Care Team Role Provider Type Monica Quiroga MD Family Provider Physician Primary Care Provider Specialty: Family Practice Address: [address] [place] [address], [place], [place], [facility] Email: [email or web address] Arvind Garcia MD Attending Provider Physician Referring Provider Specialty: FIRE EXTINGUISHER REPAIRER INSPECTOR Address: [address] [place] [address], [address], [place], [address] Email: [email or web address] Physical Therapy Initial Evaluation PT-OP-A Visit Information Start: 04/02/25 20:55 Freq: Status: Active Protocol: Document 04/11/25 07:22 LRN (Rec: 04/11/25 11:34 LRN Laptop) Out-Patient Physical Therapy Visit Information Visit Information Visit Type Initial Evaluation Visit Start Time 10:46 Visit Stop Time 11:33 Visit Number Evaluation Information Evaluation Date 04/11/25 Precautions Precautions Pt reported: HPV past 3 yrs, painful pelvic exams with bleeding, L knee meniscus and ligament tears & sprain, med controlled HBP, Depression & ADHD, high cholesterol (statin ). (note: pt on Estrodial/ Progesterone, HRT). PT-OP-B Current Condition Start: 04/02/25 20:55 Freq: Status: Active Protocol: Document 04/11/25 07:22 LRN (Rec: 04/11/25 11:34 LRN Laptop) Current Condition History of Current Condition Onset Date 3-4 months ago. Current Complaints Occasional pn in perineum if sitting too fast, sometimes so bad misses work History of Current Condition Every 3-4 months has extreme period pain, bloating, and cramping. She is extremely sensitive in perineum, no intercourse in 2 yrs. Bleeding with intercourse without pain (1 yr ago). 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 Has pelvic exams every 6 months that are very painful. She denies urinary incontinence issues, but notes small dime sized urinary leakage with strong sneeze, not requiring use of pads because so infrequent. Per intake form she urinates 4-5x/ day and 1x/night, drinks ( caffeinated) 2-3 glasses of fluid/day, 0 alcoholic beverages. Recently had tear in meniscus, ligament tear and a sprain. 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 Post menopausal. Pt reports she wants hysterectomy. PMH: groin Hernia repair 1972 , appy at 1 yo leaving a lot of scar tissue, tubal and gall bladder removal, lat band 2009, lat band removal 2011, Ventral hernia rpr w/mesh in abdomen 2015, , Lipoma removed from R LB 2023. Prior Treatments and Tests None Future Testing and Treatments Planned Pt planning on having L knee PT at [facility]. Developmental History Developmental History 2P, 2G. Both vaginal births. Treatment Goals Patient/Caregiver Goals Pt goals: - Eliminate PF pain with quick sitting. 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 Therapy/Recovery High blood pressure controlled by meds. Pt notes Obesity. HPV past 3 yrs, painful pelvic exams with bleeding. PT-OP-C Subjective Start: 04/02/25 20:55 Freq: Status: Active Protocol: Document 04/11/25 07:22 LRN (Rec: 04/11/25 11:34 LRN Laptop) Patient Questionnaires Pelvic Pain and Urgency/Frequency Patient Symptom Scale Pelvic Pain Score 7 OP-PT Pain Assessment Pain Assessment Grid Paper Pain Assessment Grid Completed Yes Location L knee Pain Location Details Posterior knee Intensity 7 Scale Used Numeric (0 - 10) Description- Other Pain range 3-7 R low back Intensity 3 Scale Used Numeric (0 - 10) Description- Other Pain range 1-3 Anterior lower abdomen Intensity 5 Scale Used Numeric (0 - 10) Description- Other Pain range 1-5 PT-OP-I Pelvic Floor Start: 04/02/25 20:55 Freq: Status: Active Protocol: Document 04/11/25 07:22 LRN (Rec: 04/11/25 11:34 LRN Laptop) Pelvic Floor Assessment Urine Leakage Size Small Leakage Cause Sneeze Nocturia 1 Pads Used In 24 Hours 0 Bowel Bowel Movement Frequency Daily or every other day [place] Stool Chart Type 1-7 4 [place] Stool Chart Comments Sometimes has loose stool ( milkshake consistency). Pelvic Clock Pelvic Clock Other Pt denies tenderness in superficial and deep PF muscles. Prolapse Uterine Prolapse Grade 2 Cystocele Grade 2 Rectocele Grade 2 Perineal Descent Resting Absent Bearing Absent Contraction Ability Manual Muscle Testing Left 2 Manual Muscle Testing Right 3 Manual Muscle Testing Anterior 2 Manual Muscle Testing Posterior 3 Muscle Endurance (Seconds) 7 Number of Quick Contractions In 10 6 Seconds PT-OP-J Posture/Palpation/Skin Start: 04/02/25 20:55 Freq: Status: Active Protocol: Document 04/11/25 07:22 LRN (Rec: 04/11/25 11:34 LRN Laptop) Posture Evaluation Comments Posture Comments Standing: Forward head Head shift left, L shoulder high, arms IR, pronated hands, AB thumbs, slight curl fingers, elbows flexed, Head L rotated, Scapula: L retracted and upward rotated, R hip high, R high scapula. Valgus knees, flat L plantar arch, valgus L ankle. PT-OP-K Range of Motion Start: 04/02/25 20:55 Freq: Status: Active Protocol: Document 04/11/25 07:22 LRN (Rec: 04/11/25 11:34 LRN Laptop) Lumbar Spine Range of Motion Lumbar Spine Active Degrees Testing Position Standing Flexion 110 Extension 15 Rotation Left 20 Rotation Right 20 Lateral Flexion Left 17 Lateral Flexion Right 17 Hip Goniometric Range of Motion Hip Right Passive Testing Position Supine Internal Rotation 40 External Rotation 50 Left Passive Testing Position Supine Internal Rotation 35 External Rotation 50 PT-OP-M Strength Start: 04/02/25 20:55 Freq: Status: Active Protocol: Document 04/11/25 07:22 LRN (Rec: 04/11/25 11:34 LRN Laptop) Trunk Strength Trunk Manual Muscle Testing Core Stabilization Good core stabilization with MMT of LE's. Hip Strength Hip Manual Muscle Testing Right Abduction 3 Fair Comments Strength is 5/5 except as indicated above. MMT hip AB caused pain in vagina. Left Comments Strength is 5/5. PT-OP-Q Treatments Start: 04/02/25 20:55 Freq: Status: Active Protocol: Document 04/11/25 07:22 LRN (Rec: 04/11/25 11:34 LRN Laptop) Self-Care/Home Management Treatment Education Other Education Discussed results of evaluation, goals, treatment, and plan of care (POC), pt agreeable to evaluation, goals , treatment, and POC. Discussed and educated pt in specifics for completion of in use of Bladder Diary and I/S in tracking for 1 week. PT-OP-T Assessment and Plan Start: 04/02/25 20:55 Freq: Status: Active Protocol: Document 04/11/25 07:22 LRN (Rec: 04/11/25 11:34 LRN Laptop) Physical Therapy Assessment Rehab Potential Rehabilitation Potential Good Evaluation Complexity Number of Personal Factors/Comorbidities 3 or More Number of Body Systems Impaired 4 or More Clinical Presentation at Evaluation Evolving Impairments Impairments Pain,Posture,Soft Tissue Mobility,Strength Goals Two Impairment Pelvic floor pain with quick sitting Short Term Goal (STG) Pt will be educated in proper sitting/standing posture, and hip hinging for sit<>stand. STG Duration 05/18/25 Shelter Goal (LTG) Eliminate PF pain with quick sitting. LTG Duration 06/22/25 One Impairment Lacks appropriate self care HEP Short Term Goal (STG) Pt educated and will be able to perform an isolated PF contraction without substitute muscles. STG Duration 05/18/25 Shelter Goal (LTG) Pt will be independent in a self care HEP for PF strengthening (L>R). LTG Duration 06/22/25 Assessment Summary Assessment Pt is a 49 yo female with c/o occasional pain in the perineum if sitting too fast, but sometimes pain becomes so bad she misses work, indicating a possible core pressure mgmt condition or hormonal relationship. She has painful pelvic exams every 6 months, but with internal digital exam she has discomfort at PF clock 4, 5 (~ Obturator Internus location). She has decreased posture, limited hip ER, decreased R hip AB strength due to PF pain when muscle testing; trunk mobility is normal. Pt has occasional urinary leakage with a strong cough that she is not concerned about. Her main concern is the PF pain with Pelvic exams. The pt will benefit from skilled physical therapy for pt education, self care management, manual therapy, biofeedback with vaginal sensor, therapeutic exercises, therapeutic activities, and neuromuscular reeducation to achieve the above stated goals . Physical Therapy Plan Frequency and Duration Frequency of Treatment 1x/Week Duration of treatment (weeks) 10 Plan of Care Start Date 04/11/25 Plan of Care End Date 06/22/25 Therapeutic Interventions Therapeutic Interventions Home Exercise Program,Manual Therapy,Neuromuscular Re- education,Self-Care/Home Management,Soft Tissue Mobilization,Therapeutic Activities,Therapeutic Exercises Next Visit Focus/Plan Next Note Type Treatment Note Next Visit Plan Next: Teach pt Aggrevator Kegel exercise, Review Bladder dairy and discuss as needed: fluid intake (AM/PM), urinary voiding frequency, & nighttime voiding frequency, times between voids and voiding times, types of intake fluids , bladder irritants. Assess for sacral balancing, JOSEY nerve treatment. HEP: Supine lying at night with wedge or pillows, Hip ER stretch if tolerated on L knee w/meniscus & lig. tear Manual for abdominal tenderness (uterus prolapse), transfers for core pressure mgmt. Teach hip hinging with transfer sit<>stand and proper sit/stand posture. POC: Pt education - reverse kegel, core pressure mgmt, , Manual therapy, Therapeutic Exercises, Therapeutic Activities, Neuromuscular Reeducation.
--- NOTE | 2025-04-11 17:11 | PT.OPPOC ---
Physical, Occupational & Speech Therapy At [facility] Current Diagnoses Other chronic pain (04/11/25) Pain in right hip (04/11/25) Muscle weakness (generalized) (04/11/25) Pelvic and perineal pain (04/11/25) Visit Care Team Role Provider Type Monica Quiroga MD Family Provider Physician Primary Care Provider Specialty: Family Practice Address: [facility], [address], [place], [address] Email: [email or web address] Avrind Garcia MD Attending Provider Physician Referring Provider Specialty: HIP HOP DANCER Address: [facility] [place] [address], [address], [place], [address] Email: [email or web address] Plan Of Care PT-OP-B Current Condition Start: 04/02/25 20:55 Freq: Status: Active Protocol: Document 04/11/25 07:22 LRN (Rec: 04/11/25 11:34 LRN Laptop) Current Condition History of Current Condition Onset Date 3-4 months ago. Current Complaints Occasional pn in perineum if sitting too fast, sometimes so bad misses work History of Current Condition Every 3-4 months has extreme period pain, bloating, and cramping. She is extremely sensitive in perineum, no intercourse in 2 yrs. Bleeding with intercourse without pain (1 yr ago). 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 Has pelvic exams every 6 months that are very painful. She denies urinary incontinence issues, but notes small dime sized urinary leakage with strong sneeze, not requiring use of pads because so infrequent. Per intake form she urinates 4-5x/ day and 1x/night, drinks ( caffeinated) 2-3 glasses of fluid/day, 0 alcoholic beverages. Recently had tear in meniscus, ligament tear and a sprain. 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 Post menopausal. Pt reports she wants hysterectomy. PMH: groin Hernia repair 1972 , appy at 1 yo leaving a lot of scar tissue, tubal and gall bladder removal, lat band 2009, lat band removal 2011, Ventral hernia rpr w/mesh in abdomen 2015, , Lipoma removed from R LB 2023. Prior Treatments and Tests None Future Testing and Treatments Planned Pt planning on having L knee PT at [facility]. Developmental History Developmental History 2P, 2G. Both vaginal births. Treatment Goals Patient/Caregiver Goals Pt goals: - Eliminate PF pain with quick sitting. 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 Therapy/Recovery High blood pressure controlled by meds. Pt notes Obesity. HPV past 3 yrs, painful pelvic exams with bleeding. PT-OP-T Assessment and Plan Start: 04/02/25 20:55 Freq: Status: Active Protocol: Document 04/11/25 07:22 LRN (Rec: 04/11/25 11:34 LRN Laptop) Physical Therapy Assessment Rehab Potential Rehabilitation Potential Good Evaluation Complexity Number of Personal Factors/Comorbidities 3 or More Number of Body Systems Impaired 4 or More Clinical Presentation at Evaluation Evolving Impairments Impairments Pain,Posture,Soft Tissue Mobility,Strength Goals Two Impairment Pelvic floor pain with quick sitting Short Term Goal (STG) Pt will be educated in proper sitting/standing posture, and hip hinging for sit<>stand. STG Duration 05/18/25 Test Desk Operator Goal (LTG) Eliminate PF pain with quick sitting. LTG Duration 06/22/25 One Impairment Lacks appropriate self care HEP Short Term Goal (STG) Pt educated and will be able to perform an isolated PF contraction without substitute muscles. STG Duration 05/18/25 Test Desk Operator Goal (LTG) Pt will be independent in a self care HEP for PF strengthening (L>R). LTG Duration 06/22/25 Assessment Summary Assessment Pt is a 49 yo female with c/o occasional pain in the perineum if sitting too fast, but sometimes pain becomes so bad she misses work, indicating a possible core pressure mgmt condition or hormonal relationship. She has painful pelvic exams every 6 months, but with internal digital exam she has discomfort at PF clock 4, 5 (~ Obturator Internus location). She has decreased posture, limited hip ER, decreased R hip AB strength due to PF pain when muscle testing; trunk mobility is normal. Pt has occasional urinary leakage with a strong cough that she is not concerned about. Her main concern is the PF pain with Pelvic exams. The pt will benefit from skilled physical therapy for pt education, self care management, manual therapy, biofeedback with vaginal sensor, therapeutic exercises, therapeutic activities, and neuromuscular reeducation to achieve the above stated goals . Physical Therapy Plan Frequency and Duration Frequency of Treatment 1x/Week Duration of treatment (weeks) 10 Plan of Care Start Date 04/11/25 Plan of Care End Date 06/22/25 Therapeutic Interventions Therapeutic Interventions Home Exercise Program,Manual Therapy,Neuromuscular Re- education,Self-Care/Home Management,Soft Tissue Mobilization,Therapeutic Activities,Therapeutic Exercises Next Visit Focus/Plan Next Note Type Treatment Note Next Visit Plan Next: Teach pt Aggrevator Kegel exercise, Review Bladder dairy and discuss as needed: fluid intake (AM/PM), urinary voiding frequency, & nighttime voiding frequency, times between voids and voiding times, types of intake fluids , bladder irritants. Assess for sacral balancing, JOSEY nerve treatment. HEP: Supine lying at night with wedge or pillows, Hip ER stretch if tolerated on L knee w/meniscus & lig. tear Manual for abdominal tenderness (uterus prolapse), transfers for core pressure mgmt. Teach hip hinging with transfer sit<>stand and proper sit/stand posture. POC: Pt education - reverse kegel, core pressure mgmt, , Manual therapy, Therapeutic Exercises, Therapeutic Activities, Neuromuscular Reeducation. Plan of Care Dates Plan of Care Start Date 04/11/25 Plan of Care End Date 06/22/25 Electronically Signed by: Rhoda Nice, PT 04/11/252010 If you are in agreement with this Plan of Care, please return a signed and dated copy. I have reviewed this Plan of Care and certify that the skilled therapy services above are required to meet the patient?s needs. Physician Signature Date Printed Name and Credentials Clinical Instructor Signature Printed Name and Credentials
--- NOTE | 2025-05-02 15:45 | PT.OTN ---
Current Diagnoses Other chronic pain (05/02/25) Pain in right hip (05/02/25) Muscle weakness (generalized) (05/02/25) Pelvic and perineal pain (05/02/25) Physical Therapy Treatment Note PT-OP-A Visit Information Start: 04/02/25 20:55 Freq: Status: Active Protocol: Document 05/02/25 10:47 LRN (Rec: 05/02/25 11:34 LRN Laptop) Out-Patient Physical Therapy Visit Information Visit Information Visit Type Treatment Note Visit Start Time 10:47 Visit Stop Time 11:29 Visit Number Evaluation Information Evaluation Date 04/11/25 Precautions Precautions Pt reported: HPV past 3 yrs, painful pelvic exams with bleeding, L knee meniscus and ligament tears & sprain, med controlled HBP, Depression & ADHD, high cholesterol (statin). (note: pt on Estrodial/ Progesterone, HRT). PT-OP-B Current Condition Start: 04/02/25 20:55 Freq: Status: Active Protocol: Document 04/11/25 07:22 LRN (Rec: 04/11/25 11:34 LRN Laptop) Current Condition History of Current Condition Onset Date 3-4 months ago. Current Complaints Occasional pn in perineum if sitting too fast, sometimes so bad misses work History of Current Every 3-4 months has extreme period pain, bloating, and Condition cramping. She is extremely sensitive in perineum, no intercourse in 2 yrs. Bleeding with intercourse without pain (1 yr ago). 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 Has pelvic exams every 6 months that are very painful. She denies urinary incontinence issues, but notes small dime sized urinary leakage with strong sneeze, not requiring use of pads because so infrequent. Per intake form she urinates 4- 5x/day and 1x/night, drinks (caffeinated) 2-3 glasses of fluid/day, 0 alcoholic beverages. Recently had tear in meniscus, ligament tear and a sprain. 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 Post menopausal. Pt reports she wants hysterectomy. PMH: groin Hernia repair 1972, appy at 1 yo leaving a lot of scar tissue, tubal and gall bladder removal, lat band 2009, lat band removal 2011, Ventral hernia rpr w/mesh in abdomen 2015, , Lipoma removed from R LB 2023. Prior Treatments and None Tests Future Testing and Pt planning on having L knee PT at [facility]. Treatments Planned Developmental History Developmental 2P, 2G. Both vaginal births. History Treatment Goals Patient/Caregiver Pt goals: Goals - Eliminate PF pain with quick sitting. 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 Factors That May High blood pressure controlled by meds. Effect Therapy/ Pt notes Obesity. Recovery HPV past 3 yrs, painful pelvic exams with bleeding. PT-OP-C Subjective Start: 04/02/25 20:55 Freq: Status: Active Protocol: Document 05/02/25 10:47 LRN (Rec: 05/02/25 11:34 LRN Laptop) OP-PT Subjective Patient Comments Patient Comments Taking antibiotics for R eye cellulitis. PT-OP-I Pelvic Floor Start: 04/02/25 20:55 Freq: Status: Active Protocol: Document 04/11/25 07:22 LRN (Rec: 04/11/25 11:34 LRN Laptop) Pelvic Floor Assessment Urine Leakage Size Small Leakage Cause Sneeze Nocturia 1 Pads Used In 24 0 Hours Bowel Bowel Movement Daily or every other day Frequency Scio Stool Chart 4 Type 1-7 Scio Stool Chart Sometimes has loose stool (milkshake consistency). Comments Pelvic Clock Pelvic Clock Other Pt denies tenderness in superficial and deep PF muscles . Prolapse Uterine Prolapse Grade 2 Cystocele Grade 2 Rectocele Grade 2 Perineal Descent Resting Absent Bearing Absent Contraction Ability Manual Muscle 2 Testing Left Manual Muscle 3 Testing Right Manual Muscle 2 Testing Anterior Manual Muscle 3 Testing Posterior Muscle Endurance ( 7 Seconds) Number of Quick 6 Contractions In 10 Seconds PT-OP-J Posture/Palpation/Skin Start: 04/02/25 20:55 Freq: Status: Active Protocol: Document 04/11/25 07:22 LRN (Rec: 04/11/25 11:34 LRN Laptop) Posture Evaluation Comments Posture Comments Standing: Forward head Head shift left, L shoulder high, arms IR, pronated hands, AB thumbs, slight curl fingers, elbows flexed, Head L rotated, Scapula: L retracted and upward rotated, R hip high, R high scapula. Valgus knees, flat L plantar arch, valgus L ankle. PT-OP-K Range of Motion Start: 04/02/25 20:55 Freq: Status: Active Protocol: Document 04/11/25 07:22 LRN (Rec: 04/11/25 11:34 LRN Laptop) Lumbar Spine Range of Motion Lumbar Spine Active Degrees Testing Position Standing Flexion 110 Extension 15 Rotation Left 20 Rotation Right 20 Lateral Flexion Left 17 Lateral Flexion 17 Right Hip Goniometric Range of Motion Hip Right Passive Testing Position Supine Internal Rotation 40 External Rotation 50 Left Passive Testing Position Supine Internal Rotation 35 External Rotation 50 PT-OP-M Strength Start: 04/02/25 20:55 Freq: Status: Active Protocol: Document 04/11/25 07:22 LRN (Rec: 04/11/25 11:34 LRN Laptop) Trunk Strength Trunk Manual Muscle Testing Core Stabilization Good core stabilization with MMT of LE's. Hip Strength Hip Manual Muscle Testing Right Abduction 3 Fair Comments Strength is 5/5 except as indicated above. MMT hip AB caused pain in vagina. Left Comments Strength is 5/5. PT-OP-Q Treatments Start: 04/02/25 20:55 Freq: Status: Active Protocol: Document 05/02/25 10:47 LRN (Rec: 05/02/25 11:34 LRN Laptop) Therapeutic Exercises Sidelying Exercises TA tightening Side bilateral Reps/Minutes 10 SH (3 breaths) x 8 each side Therapeutic Activity Therapeutic Activity Core pressure mgmt Name Mgmt with transfers stand<>sit<>supine Reps/Minutes 12' Self-Care/Home Management Treatment Education Caregiver Education Discussed future ex: swimming and yoga. Discussed her fluid intakes but pt did not do bladder dairy. States she is drinking ~48 oz/day, discussed her max hydration would be 89 oz. And discussed types of fluid and recommended natural fruit in water. Pt doesn't like ice her drinks. Discussed and educated pt in specifics for completion of in use of Bladder Diary and I/S in tracking for 1 week. Other Education Issued HO's for Bladder diary & IH Pt educ/self help for UI. Issued HO for Scio Stool Chart and Bladder Diary. PT-OP-T Assessment and Plan Start: 04/02/25 20:55 Freq: Status: Active Protocol: Document 05/02/25 10:47 LRN (Rec: 05/02/25 11:34 LRN Laptop) Physical Therapy Assessment Goals Two Impairment Pelvic floor pain with quick sitting Short Term Goal (STG Pt will be educated in proper sitting/standing posture, ) and hip hinging for sit<>stand. STG Duration 05/18/25 Skilled Nursing Goal (LTG) Eliminate PF pain with quick sitting. LTG Duration 06/22/25 One Impairment Lacks appropriate self care HEP Short Term Goal (STG Pt educated and will be able to perform an isolated PF ) contraction without substitute muscles. STG Duration 05/18/25 Breastfeeding Program Coordinator Goal (LTG) Pt will be independent in a self care HEP for PF strengthening (L>R). LTG Duration 06/22/25 Assessment Summary Assessment 49 yo female w/occasional perineum pain if sitting to fast, due to possibly poor core pressure mgmt, withholding urine, weak core, or with hormonal relationship (painful pelvic exams every 6 months), tender at PF clock 4, 5 with internal palp (~Obturator Internus location). She has decreased posture, limited hip ER, decreased R hip AB strength due to PF pain; occasional urinary leakage with a strong cough (not of pt concern). 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 Physical Therapy Plan Frequency and Duration Frequency of 1x/Week Treatment Duration of 10 treatment (weeks) Plan of Care Start 04/11/25 Date Plan of Care End 06/22/25 Date Next Visit Focus/Plan Next Note Type Treatment Note Next Visit Plan Next: Teach pt Aggrevator Kegel exercise, Review Bladder dairy and discuss changes as needed: fluid intake (AM/PM), urinary voiding frequency, & nighttime voiding frequency, times between voids and voiding times, types of intake fluids , bladder irritants. Assess for sacral balancing, JOSEY nerve treatment. Manual for abdominal tenderness (uterus prolapse), transfers for core pressure mgmt. Teach hip hinging with transfer sit<>stand and proper sit/stand posture. HEP: Supine lying at night with wedge or pillows, Hip ER stretch if tolerated on L knee w/meniscus & lig. tear POC: Pt education - reverse kegel, core pressure mgmt, , Manual therapy, Therapeutic Exercises, Therapeutic Activities, Neuromuscular Reeducation.
--- NOTE | 2025-05-09 12:34 | PT.OTN ---
Current Diagnoses Other chronic pain (05/09/25) Pain in right hip (05/09/25) Muscle weakness (generalized) (05/09/25) Pelvic and perineal pain (05/09/25) Physical Therapy Treatment Note PT-OP-A Visit Information Start: 04/02/25 20:55 Freq: Status: Active Protocol: Document 05/09/25 11:30 LRN (Rec: 05/09/25 12:34 LRN Laptop) Out-Patient Physical Therapy Visit Information Visit Information Visit Type Treatment Note Visit Start Time 11:30 Visit Stop Time 12:17 Visit Number Evaluation Information Evaluation Date 04/11/25 Precautions Precautions Pt reported: HPV past 3 yrs, painful pelvic exams with bleeding, L knee meniscus and ligament tears & sprain, med controlled HBP, Depression & ADHD, high cholesterol (statin). (note: pt on Estrodial/ Progesterone, HRT). PT-OP-B Current Condition Start: 04/02/25 20:55 Freq: Status: Active Protocol: Document 04/11/25 07:22 LRN (Rec: 04/11/25 11:34 LRN Laptop) Current Condition History of Current Condition Onset Date 3-4 months ago. Current Complaints Occasional pn in perineum if sitting too fast, sometimes so bad misses work History of Current Every 3-4 months has extreme period pain, bloating, and Condition cramping. She is extremely sensitive in perineum, no intercourse in 2 yrs. Bleeding with intercourse without pain (1 yr ago). 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 Has pelvic exams every 6 months that are very painful. She denies urinary incontinence issues, but notes small dime sized urinary leakage with strong sneeze, not requiring use of pads because so infrequent. Per intake form she urinates 4- 5x/day and 1x/night, drinks (caffeinated) 2-3 glasses of fluid/day, 0 alcoholic beverages. Recently had tear in meniscus, ligament tear and a sprain. 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 Pt reports she wants hysterectomy. PMH: groin Hernia repair 1972, appy at 1 yo leaving a lot of scar tissue, tubal and gall bladder removal, lat band 2009, lat band removal 2011, Ventral hernia rpr w/mesh in abdomen 2015, , Lipoma removed from R LB 2023. Prior Treatments and None Tests Future Testing and Pt planning on having L knee PT at [facility]. Treatments Planned Developmental History Developmental 2P, 2G. Both vaginal births. History Treatment Goals Patient/Caregiver Pt goals: Goals - Eliminate PF pain with quick sitting. 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 Factors That May High blood pressure controlled by meds. Effect Therapy/ Pt notes Obesity. Recovery HPV past 3 yrs, painful pelvic exams with bleeding. PT-OP-C Subjective Start: 04/02/25 20:55 Freq: Status: Active Protocol: Document 05/09/25 11:30 LRN (Rec: 05/09/25 12:34 LRN Laptop) OP-PT Subjective Patient Comments Patient Comments Started a new medication and has made her nauseous. PT-OP-I Pelvic Floor Start: 04/02/25 20:55 Freq: Status: Active Protocol: Document 04/11/25 07:22 LRN (Rec: 04/11/25 11:34 LRN Laptop) Pelvic Floor Assessment Urine Leakage Size Small Leakage Cause Sneeze Nocturia 1 Pads Used In 24 0 Hours Bowel Bowel Movement Daily or every other day Frequency Twiggs Stool Chart 4 Type 1-7 Twiggs Stool Chart Sometimes has loose stool (milkshake consistency). Comments Pelvic Clock Pelvic Clock Other Pt denies tenderness in superficial and deep PF muscles . Prolapse Uterine Prolapse Grade 2 Cystocele Grade 2 Rectocele Grade 2 Perineal Descent Resting Absent Bearing Absent Contraction Ability Manual Muscle 2 Testing Left Manual Muscle 3 Testing Right Manual Muscle 2 Testing Anterior Manual Muscle 3 Testing Posterior Muscle Endurance ( 7 Seconds) Number of Quick 6 Contractions In 10 Seconds PT-OP-J Posture/Palpation/Skin Start: 04/02/25 20:55 Freq: Status: Active Protocol: Document 04/11/25 07:22 LRN (Rec: 04/11/25 11:34 LRN Laptop) Posture Evaluation Comments Posture Comments Standing: Forward head Head shift left, L shoulder high, arms IR, pronated hands, AB thumbs, slight curl fingers, elbows flexed, Head L rotated, Scapula: L retracted and upward rotated, R hip high, R high scapula. Valgus knees, flat L plantar arch, valgus L ankle. PT-OP-K Range of Motion Start: 04/02/25 20:55 Freq: Status: Active Protocol: Document 04/11/25 07:22 LRN (Rec: 04/11/25 11:34 LRN Laptop) Lumbar Spine Range of Motion Lumbar Spine Active Degrees Testing Position Standing Flexion 110 Extension 15 Rotation Left 20 Rotation Right 20 Lateral Flexion Left 17 Lateral Flexion 17 Right Hip Goniometric Range of Motion Hip Right Passive Testing Position Supine Internal Rotation 40 External Rotation 50 Left Passive Testing Position Supine Internal Rotation 35 External Rotation 50 PT-OP-M Strength Start: 04/02/25 20:55 Freq: Status: Active Protocol: Document 04/11/25 07:22 LRN (Rec: 04/11/25 11:34 LRN Laptop) Trunk Strength Trunk Manual Muscle Testing Core Stabilization Good core stabilization with MMT of LE's. Hip Strength Hip Manual Muscle Testing Right Abduction 3 Fair Comments Strength is 5/5 except as indicated above. MMT hip AB caused pain in vagina. Left Comments Strength is 5/5. PT-OP-Q Treatments Start: 04/02/25 20:55 Freq: Status: Active Protocol: Document 05/09/25 11:30 LRN (Rec: 05/09/25 12:34 LRN Laptop) Therapeutic Activity Therapeutic Activity Hip hinging Reps/Minutes 2' Comments Pt able to perform with fairly good back positioning. Manual Therapy Treatment Consent Patient gave verbal Yes consent for manual treatment Soft Tissue Mobilization Abdomen Body Location Lower abdomen and lower abdominal scar. Mobilization Type Sustained Pressure Intensity/Depth Moderate Body Position Hooklying Comments Bolster under knees. Self-Care/Home Management Treatment Education Other Education Reviewed Bladder dairy and discussed: fluid intake ( AM/PM), urinary voiding frequency, & nighttime voiding frequency, times between voids and voiding times, types of intake fluids , bladder irritants. Discussed how medications and caffeine affects urinary voiding and hydration. Recommended pt increase fluid intake and add greens to diet (pt drinking ~30-32 oz and 24 oz coffee-AM; 1/2 body wgt is 98 oz, 3/4 is 73.5 oz). PT-OP-T Assessment and Plan Start: 04/02/25 20:55 Freq: Status: Active Protocol: Document 05/09/25 11:30 LRN (Rec: 05/09/25 12:34 LRN Laptop) Physical Therapy Assessment Goals Two Impairment Pelvic floor pain with quick sitting Short Term Goal (STG Pt will be educated in proper sitting/standing posture, ) and hip hinging for sit<>stand. 05/09/25: Pt educated in hip hinging for sit<>stand. STG Duration 05/18/25 progressed 05/09/25 (need educ sit/stnd posture) Capacity Planning Manager Goal (LTG) Eliminate PF pain with quick sitting. 05/09/25: No PF pain with quick sit after empying bladder. LTG Duration 06/22/25 progressed 05/09/25 One Impairment Lacks appropriate self care HEP Short Term Goal (STG Pt educated and will be able to perform an isolated PF ) contraction without substitute muscles. STG Duration 05/18/25 Capacity Planning Manager Goal (LTG) Pt will be independent in a self care HEP for PF strengthening (L>R). LTG Duration 06/22/25 Assessment Summary Assessment No urinary leakage; therefore did not talk about kegel aggrevators. Pt had tenderness on lateral side of her well healed lower abdominal scar. Pt has multiple abdominal scars from abdominal mesh, gall bladder removed. No pain with quick sit or stand after using the bathroom. Physical Therapy Plan Frequency and Duration Frequency of 1x/Week Treatment Duration of 10 treatment (weeks) Plan of Care Start 04/11/25 Date Plan of Care End 06/22/25 Date Next Visit Focus/Plan Next Note Type Treatment Note Next Visit Plan Next: Assess response to incr fluids and fiber in diet for BM types and voiding frequency. Assess for sacral balancing, JOSEY nerve treatment and Manual for abdominal tenderness (uterus prolapse), review transfers for core pressure mgmt. Teach proper sit/stand posture. Exer: Isolated Kegel . HEP: Supine lying at night with wedge or pillows, Hip ER stretch if tolerated on L knee w/meniscus & lig. tear POC: Pt education - reverse kegel, core pressure mgmt, , Manual therapy, Therapeutic Exercises, Therapeutic Activities, Neuromuscular Reeducation.
--- NOTE | 2025-05-16 12:34 | PT.OTN ---
Current Diagnoses Other chronic pain (05/16/25) Pain in right hip (05/16/25) Muscle weakness (generalized) (05/16/25) Pelvic and perineal pain (05/16/25) Physical Therapy Treatment Note PT-OP-A Visit Information Start: 04/02/25 20:55 Freq: Status: Active Protocol: Document 05/16/25 11:38 LRN (Rec: 05/16/25 12:33 LRN Laptop) Out-Patient Physical Therapy Visit Information Visit Information Visit Type Treatment Note Visit Start Time 11:39 Visit Stop Time 12:21 Visit Number Evaluation Information Evaluation Date 04/11/25 Precautions Precautions Pt reported: HPV past 3 yrs, painful pelvic exams with bleeding, L knee meniscus and ligament tears & sprain, med controlled HBP, Depression & ADHD, high cholesterol (statin). (note: pt on Estrodial/ Progesterone, HRT). PT-OP-B Current Condition Start: 04/02/25 20:55 Freq: Status: Active Protocol: Document 04/11/25 07:22 LRN (Rec: 04/11/25 11:34 LRN Laptop) Current Condition History of Current Condition Onset Date 3-4 months ago. Current Complaints Occasional pn in perineum if sitting too fast, sometimes so bad misses work History of Current Every 3-4 months has extreme period pain, bloating, and Condition cramping. She is extremely sensitive in perineum, no intercourse in 2 yrs. Bleeding with intercourse without pain (1 yr ago). 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 Has pelvic exams every 6 months that are very painful. She denies urinary incontinence issues, but notes small dime sized urinary leakage with strong sneeze, not requiring use of pads because so infrequent. Per intake form she urinates 4- 5x/day and 1x/night, drinks (caffeinated) 2-3 glasses of fluid/day, 0 alcoholic beverages. Recently had tear in meniscus, ligament tear and a sprain. 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 Post menopausal. Pt reports she wants hysterectomy. PMH: groin Hernia repair 1972, appy at 1 yo leaving a lot of scar tissue, tubal and gall bladder removal, lat band 2009, lat band removal 2011, Ventral hernia rpr w/mesh in abdomen 2015, , Lipoma removed from R LB 2023. Prior Treatments and None Tests Future Testing and Pt planning on having L knee PT at [facility]. Treatments Planned Developmental History Developmental 2P, 2G. Both vaginal births. History Treatment Goals Patient/Caregiver Pt goals: Goals - Eliminate PF pain with quick sitting. 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 Factors That May High blood pressure controlled by meds. Effect Therapy/ Pt notes Obesity. Recovery HPV past 3 yrs, painful pelvic exams with bleeding. PT-OP-C Subjective Start: 04/02/25 20:55 Freq: Status: Active Protocol: Document 05/16/25 11:38 LRN (Rec: 05/16/25 12:33 LRN Laptop) OP-PT Subjective Patient Comments Patient Comments Pain is 3/10, thinks its because of her new medication because burping horrible burps with belly and lower abdomen pain. Birthday celebrating with a lot of eating that may also be a reason for bloating feeling. New med slows digestion down. Has incr'd fluids and fiber, but because of Thursday celebration don't know what the result is like. Has been doing hip hinging and breathing. PT-OP-I Pelvic Floor Start: 04/02/25 20:55 Freq: Status: Active Protocol: Document 04/11/25 07:22 LRN (Rec: 04/11/25 11:34 LRN Laptop) Pelvic Floor Assessment Urine Leakage Size Small Leakage Cause Sneeze Nocturia 1 Pads Used In 24 0 Hours Bowel Bowel Movement Daily or every other day Frequency [place] Stool Chart 4 Type 1-7 [place] Stool Chart Sometimes has loose stool (milkshake consistency). Comments Pelvic Clock Pelvic Clock Other Pt denies tenderness in superficial and deep PF muscles . Prolapse Uterine Prolapse Grade 2 Cystocele Grade 2 Rectocele Grade 2 Perineal Descent Resting Absent Bearing Absent Contraction Ability Manual Muscle 2 Testing Left Manual Muscle 3 Testing Right Manual Muscle 2 Testing Anterior Manual Muscle 3 Testing Posterior Muscle Endurance ( 7 Seconds) Number of Quick 6 Contractions In 10 Seconds PT-OP-J Posture/Palpation/Skin Start: 04/02/25 20:55 Freq: Status: Active Protocol: Document 04/11/25 07:22 LRN (Rec: 04/11/25 11:34 LRN Laptop) Posture Evaluation Comments Posture Comments Standing: Forward head Head shift left, L shoulder high, arms IR, pronated hands, AB thumbs, slight curl fingers, elbows flexed, Head L rotated, Scapula: L retracted and upward rotated, R hip high, R high scapula. Valgus knees, flat L plantar arch, valgus L ankle. PT-OP-K Range of Motion Start: 04/02/25 20:55 Freq: Status: Active Protocol: Document 04/11/25 07:22 LRN (Rec: 04/11/25 11:34 LRN Laptop) Lumbar Spine Range of Motion Lumbar Spine Active Degrees Testing Position Standing Flexion 110 Extension 15 Rotation Left 20 Rotation Right 20 Lateral Flexion Left 17 Lateral Flexion 17 Right Hip Goniometric Range of Motion Hip Right Passive Testing Position Supine Internal Rotation 40 External Rotation 50 Left Passive Testing Position Supine Internal Rotation 35 External Rotation 50 PT-OP-M Strength Start: 04/02/25 20:55 Freq: Status: Active Protocol: Document 04/11/25 07:22 LRN (Rec: 04/11/25 11:34 LRN Laptop) Trunk Strength Trunk Manual Muscle Testing Core Stabilization Good core stabilization with MMT of LE's. Hip Strength Hip Manual Muscle Testing Right Abduction 3 Fair Comments Strength is 5/5 except as indicated above. MMT hip AB caused pain in vagina. Left Comments Strength is 5/5. PT-OP-Q Treatments Start: 04/02/25 20:55 Freq: Status: Active Protocol: Document 05/16/25 11:38 LRN (Rec: 05/16/25 12:33 LRN Laptop) Therapeutic Exercises Supine Exercises Long Hold Kegels Supine Exercise Name Long hold isolated PF with awareness of relaxation Reps/Minutes 10 SH/20 SR x 10' Quick Kegels Reps/Minutes 1 SH/2 SR x 8' Isolated Kegel Reps/Minutes 3' Comments Cued hand on abdomen & positioning of legs to teach neutral. Manual Therapy Treatment Consent Patient gave verbal Yes consent for manual treatment Soft Tissue Mobilization BM massage Body Location Bowel massage with training for pt to do self massage Intensity/Depth Moderate Body Position Supine Self-Care/Home Management Treatment Education Other Education Pt educated in proper sit and stand posture. Activities Self-Care/Home Issued handout for proper sit/stand posturing, BM Management massage & HEP of Kegel ex's (quick and long hold with Activities focus on relaxation after contraction). PT-OP-T Assessment and Plan Start: 04/02/25 20:55 Freq: Status: Active Protocol: Document 05/16/25 11:38 LRN (Rec: 05/16/25 12:33 LRN Laptop) Physical Therapy Assessment Goals Two Impairment Pelvic floor pain with quick sitting Short Term Goal (STG Pt will be educated in proper sitting/standing posture, ) and hip hinging for sit<>stand. 05/09/25: Pt educated in hip hinging for sit<>stand. 05/16/25: Pt educated in proper sit/stand posturing with handout issued. STG Duration 05/18/25 (05/16/25: MET GOAL) Alf Goal (LTG) Eliminate PF pain with quick sitting. 05/09/25: No PF pain with quick sit after empying bladder. 05/16/25: Pt issued handout for BM massage LTG Duration 06/22/25 progressed 05/16/25 One Impairment Lacks appropriate self care HEP Short Term Goal (STG Pt educated and will be able to perform an isolated PF ) contraction without substitute muscles. 05/16/25: Pt educated and able to perform an isolated PF contraction in supine. STG Duration 05/18/25 (05/16/25: MET GOAL) Drapery Counselor Goal (LTG) Pt will be independent in a self care HEP for PF strengthening (L>R). 05/16/25: HEP: Kegel ex's (quick and long hold with focus on relaxation after contraction). LTG Duration 06/22/25 progressed 05/16/25 Assessment Summary Assessment 49 yo female w/occasional perineum pain if sitting to fast, due to possibly poor core pressure mgmt, withholding urine, weak core, or with hormonal relationship (painful pelvic exams every 6 months), tender at PF clock 4, 5 with internal palp (~Obturator Internus location). She has decreased posture, limited hip ER, decreased R hip AB strength due to PF pain. She no longer c/o urinary leakage with a strong cough) . Today, pt having abdominal discomfort that may be associated to her new medication; therefore has not been able to identify difference in her abdomen, discomfort and BM's with increasing her fluids and fiber in her diet. She felt the BM massage was comforting to her abdomen. She is able to isolate her PF contractions, but has trouble releasing her contraction as noted when she does a reverse kegel. Physical Therapy Plan Frequency and Duration Frequency of 1x/Week Treatment Duration of 10 treatment (weeks) Plan of Care Start 04/11/25 Date Plan of Care End 06/22/25 Date Next Visit Focus/Plan Next Note Type Treatment Note Next Visit Plan Next: Assess for sacral balancing, JOSEY nerve treatment and Manual for abdominal tenderness (uterus prolapse), review transfers for core pressure mgmt. Review Exer: Isolated Kegel with focus on pt able to relax after contraction. Add pillow under hips with exercise and Hip ER stretch if tolerated on L knee w/ meniscus & lig. tear. HEP: Supine lying at night with wedge or pillows. POC: Pt education - reverse kegel, core pressure mgmt, , Manual therapy, Therapeutic Exercises, Therapeutic Activities, Neuromuscular Reeducation.
--- NOTE | 2025-06-13 17:42 | PT-OP ANOTE ---
Pt called to follow up on her PT rehab care. Msg was left to have pt return call to let us know how she is doing and if further care is needed. Phone number left for pt to call back and leave a message.
--- NOTE | 2025-06-29 20:39 | PT.OPDS ---
Current Diagnoses Other chronic pain (05/16/25) Pain in right hip (05/16/25) Muscle weakness (generalized) (05/16/25) Pelvic and perineal pain (05/16/25) Visit Care Team Role Provider Type Monica Quiroga MD Family Provider Physician Primary Care Provider Specialty: Family Practice Address: [address] [place] [address], [address], [place], [address] Email: [email or web address] Arvind Garcia MD Attending Provider Physician Referring Provider Specialty: PAINTER AND DECORATOR Address: [facility] [address] [place] [address], [address], [place], [address] Email: [email or web address] Visit Number Visit Number Discharge Summary PT-OP-A Visit Information Start: 04/02/25 20:55 Freq: Status: Active Protocol: Document 05/16/25 11:38 LRN (Rec: 05/16/25 12:33 LRN Laptop) Out-Patient Physical Therapy Visit Information Visit Information Visit Type Treatment Note Visit Start Time 11:39 Visit Stop Time 12:21 Visit Number Evaluation Information Evaluation Date 04/11/25 Precautions Precautions Pt reported: HPV past 3 yrs, painful pelvic exams with bleeding, L knee meniscus and ligament tears & sprain, med controlled HBP, Depression & ADHD, high cholesterol (statin). (note: pt on Estrodial/ Progesterone, HRT). PT-OP-B Current Condition Start: 04/02/25 20:55 Freq: Status: Active Protocol: Document 04/11/25 07:22 LRN (Rec: 04/11/25 11:34 LRN Laptop) Current Condition History of Current Condition Onset Date 3-4 months ago. Current Complaints Occasional pn in perineum if sitting too fast, sometimes so bad misses work History of Current Every 3-4 months has extreme period pain, bloating, and Condition cramping. She is extremely sensitive in perineum, no intercourse in 2 yrs. Bleeding with intercourse without pain (1 yr ago). 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 Has pelvic exams every 6 months that are very painful. She denies urinary incontinence issues, but notes small dime sized urinary leakage with strong sneeze, not requiring use of pads because so infrequent. Per intake form she urinates 4- 5x/day and 1x/night, drinks (caffeinated) 2-3 glasses of fluid/day, 0 alcoholic beverages. Recently had tear in meniscus, ligament tear and a sprain. 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 Pt reports she wants hysterectomy. PMH: groin Hernia repair 1972, appy at 1 yo leaving a lot of scar tissue, tubal and gall bladder removal, lat band 2009, lat band removal 2011, Ventral hernia rpr w/mesh in abdomen 2015, , Lipoma removed from R LB 2023. Prior Treatments and None Tests Future Testing and Pt planning on having L knee PT at [facility]. Treatments Planned Developmental History Developmental 2P, 2G. Both vaginal births. History Treatment Goals Patient/Caregiver Pt goals: Goals - Eliminate PF pain with quick sitting. 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 Factors That May High blood pressure controlled by meds. Effect Therapy/ Pt notes Obesity. Recovery HPV past 3 yrs, painful pelvic exams with bleeding. PT-OP-C Subjective Start: 04/02/25 20:55 Freq: Status: Active Protocol: Document 05/16/25 11:38 LRN (Rec: 05/16/25 12:33 LRN Laptop) OP-PT Subjective Patient Comments Patient Comments Pain is 3/10, thinks its because of her new medication because burping horrible burps with belly and lower abdomen pain. Birthday celebrating with a lot of eating that may also be a reason for bloating feeling. New med slows digestion down. Has incr'd fluids and fiber, but because of Thursday celebration don't know what the result is like. Has been doing hip hinging and breathing. PT-OP-I Pelvic Floor Start: 04/02/25 20:55 Freq: Status: Active Protocol: Document 04/11/25 07:22 LRN (Rec: 04/11/25 11:34 LRN Laptop) Pelvic Floor Assessment Urine Leakage Size Small Leakage Cause Sneeze Nocturia 1 Pads Used In 24 0 Hours Bowel Bowel Movement Daily or every other day Frequency [place] Stool Chart 4 Type 1-7 [place] Stool Chart Sometimes has loose stool (milkshake consistency). Comments Pelvic Clock Pelvic Clock Other Pt denies tenderness in superficial and deep PF muscles . Prolapse Uterine Prolapse Grade 2 Cystocele Grade 2 Rectocele Grade 2 Perineal Descent Resting Absent Bearing Absent Contraction Ability Manual Muscle 2 Testing Left Manual Muscle 3 Testing Right Manual Muscle 2 Testing Anterior Manual Muscle 3 Testing Posterior Muscle Endurance ( 7 Seconds) Number of Quick 6 Contractions In 10 Seconds PT-OP-J Posture/Palpation/Skin Start: 04/02/25 20:55 Freq: Status: Active Protocol: Document 04/11/25 07:22 LRN (Rec: 04/11/25 11:34 LRN Laptop) Posture Evaluation Comments Posture Comments Standing: Forward head Head shift left, L shoulder high, arms IR, pronated hands, AB thumbs, slight curl fingers, elbows flexed, Head L rotated, Scapula: L retracted and upward rotated, R hip high, R high scapula. Valgus knees, flat L plantar arch, valgus L ankle. PT-OP-K Range of Motion Start: 04/02/25 20:55 Freq: Status: Active Protocol: Document 04/11/25 07:22 LRN (Rec: 04/11/25 11:34 LRN Laptop) Lumbar Spine Range of Motion Lumbar Spine Active Degrees Testing Position Standing Flexion 110 Extension 15 Rotation Left 20 Rotation Right 20 Lateral Flexion Left 17 Lateral Flexion 17 Right Hip Goniometric Range of Motion Hip Right Passive Testing Position Supine Internal Rotation 40 External Rotation 50 Left Passive Testing Position Supine Internal Rotation 35 External Rotation 50 PT-OP-M Strength Start: 04/02/25 20:55 Freq: Status: Active Protocol: Document 04/11/25 07:22 LRN (Rec: 04/11/25 11:34 LRN Laptop) Trunk Strength Trunk Manual Muscle Testing Core Stabilization Good core stabilization with MMT of LE's. Hip Strength Hip Manual Muscle Testing Right Abduction 3 Fair Comments Strength is 5/5 except as indicated above. MMT hip AB caused pain in vagina. Left Comments Strength is 5/5. PT-OP-T Assessment and Plan Start: 04/02/25 20:55 Freq: Status: Active Protocol: Document 06/29/25 17:34 LRN (Rec: 06/29/25 20:39 LRN Laptop) Physical Therapy Assessment Goals Two Impairment Pelvic floor pain with quick sitting Short Term Goal (STG Pt will be educated in proper sitting/standing posture, ) and hip hinging for sit<>stand. 05/09/25: Pt educated in hip hinging for sit<>stand. 05/16/25: Pt educated in proper sit/stand posturing with handout issued. STG Duration 05/18/25 (05/16/25: MET GOAL) Intermediate Goal (LTG) Eliminate PF pain with quick sitting. 05/09/25: No PF pain with quick sit after empying bladder. 05/16/25: Pt issued handout for BM massage LTG Duration 06/22/25 progressed 05/16/25 One Impairment Lacks appropriate self care HEP Short Term Goal (STG Pt educated and will be able to perform an isolated PF ) contraction without substitute muscles. 05/16/25: Pt educated and able to perform an isolated PF contraction in supine. STG Duration 05/18/25 (05/16/25: MET GOAL) Wound Care Rn Goal (LTG) Pt will be independent in a self care HEP for PF strengthening (L>R). 05/16/25: HEP: Kegel ex's (quick and long hold with focus on relaxation after contraction). LTG Duration 06/22/25 progressed 05/16/25 Assessment Summary Assessment Pt was seen for an initial evaluation and 3 treatment visits. She cancelled her last scheduled appointment and failed to make more appointments. Pt was left a message to discuss her rehabilitation program but failed to return our call; therefore the pt is being discharged from physical therapy. The pt did well with therapy and was being progressed onto a self care HEP. No further therapy is planned, but if the pt needs further therapy a new referral would be needed. We would be more than happy to work with this pt again. Physical Therapy Plan Discharge Physical Therapy Discharge Reasons No Longer Attending PT Discharge Comments Thank you for your referral.
== END 2025-07-03 10:54 | disposition home or self-care (01) ==
LOC: PHYS 11:30
PROVIDERS: Family Provider Family Medicine; PCP Family Medicine; Referring Provider Obstetrics & Gynecology; Visit Provider Obstetrics & Gynecology
DX: R10.2 Pelvic and perineal pain (principal); G89.29 Other chronic pain; M25.551 Pain in right hip; M62.81 Muscle weakness (generalized)
CPT/HCPCS: 97110; 97140; 97162; 97530; 97535

== ENCOUNTER → 2025-05-25 15:46 | Outpatient (CLI) | payer OTHER, SELFPAY ==
--- NOTE | 2025-05-29 16:39 | DIET.OUTPTC ---
Dietary Outpatient Consult Consult Date:05/25/25 Assessment:? 50 y F referred to dietitian for hyperlipidemia Lost weight on mounjaro, was down to 160 lb from 220lb, then stopped d/t insurance coverage issues. Has started on compound again, 1 month now. GI symptoms: Nausea and upset stomach with start of compound, last the first few days; off and on diarrhea and constipation- 1x/month has constipation. Hx of gallbladder removal after and diarrhea. Hx of eating disorder, saw dietitian in past. Diet Recall: B-premier protein shake or leftovers (i.e. today polenta, vegs, eggs), 1 cup coffee L-clarke burrito from restaurant in [facility] or soup or deli sandwich (15 g protein) D-hello fresh meals (35-40g protein) sometimes ice cream Fluids: 32 oz water, 4x/wk 1 glass wine Ht:?162.56 cm? Wt: 89.868 kg?? BMI:?34? Activity: limitations with knee, seeing PT 1x/wk with home exercises Pertinent Labs: 02/04/25: A1c 4.9%, TG-175, TC-280, LDL-181, HDL 64 Nutrition Diagnosis:? Altered nutrition related lab values r/t high saturated fat content in hello fresh meals aeb review of nutrition facts on selected hello fresh meals Interventions:? Discussed and provided appropriate resources on the following: -Reducing GI symptoms/nausea by choosing lower fat hello fresh meals around injection days -Fat- types, label reading, and % and grams to aim for -Fiber- types, amount of soluble fiber to aim for, sources -Reviewed lab values and correlation with nutrition -Protein needs Goals: -<10g SFA on hello fresh meals EER: 75 g protein (1g/kg of adjusted IBW), 28 g fiber Monitoring/Evaluations:? F/u in 2 wks Electronically Signed by: Tomasa Brooke Clinical Dietitian [address] [address]
== END ==
LOC: DIET 15:46
PROVIDERS: Family Provider Family Medicine; PCP Family Medicine; Referring Provider Family Medicine
DX: E78.5 Hyperlipidemia, unspecified (principal); Z71.3 Dietary counseling and surveillance; R19.7 Diarrhea, unspecified; K59.00 Constipation, unspecified; Z68.34 Body mass index [BMI] 34.0-34.9, adult
CPT/HCPCS: 97802

== ENCOUNTER → 2025-06-05 13:59 | Outpatient (CLI) | payer OTHER, SELFPAY ==
--- NOTE | 2025-06-07 16:16 | DIET.OUTPTC ---
Dietary Outpatient Consult Consult Date:06/05/25 Assessment:? 50 y F referred to dietitian for hyperlipidemia Reports decreased nausea and diarrhea. Had diarrhea after ice cream. Increased water intake to 60 oz Diet Recall: B-premier protein shake or leftovers (i.e. today polenta, vegs, eggs), 1 cup coffee L-clarke burrito from restaurant in [facility] or soup or deli sandwich (15 g protein) D-hello fresh meals (35-40g protein), choosing lower saturated fat ones sometimes ice cream Fluids: 60 oz water, 4x/wk 1 glass wine (not around injection days) Ht:?162.56 cm? Wt: 89.868 kg?? BMI:?34? Activity: limitations with knee, seeing PT 1x/wk with home exercises Pertinent Labs: 02/04/25: A1c 4.9%, TG-175, TC-280, LDL-181, HDL 64 Nutrition Diagnosis:? (improving) Altered nutrition related lab values r/t high saturated fat content in hello fresh meals aeb review of nutrition facts on selected hello fresh meals Food/nutrient knowledge deficit r/t limited previous formal educ on folate amount aeb wondering about folate supplement Interventions:? Discussed and provided appropriate resources on the following: -Changes made -Reviewed next weeks meal choices for hellofresh in regarding to SFA, CHO, fiber, and sodium- provided educ on values and then had pt independently review meal labels for practice -Reviewed folate supplement Goals: -<10g SFA on hello fresh meals, >3 g fiber, <600mg sodium, 45 g CHO EER: 75 g protein (1g/kg of adjusted IBW), 28 g fiber Monitoring/Evaluations:? F/u in 2 wks Electronically Signed by: Tomasa Brooke Clinical Dietitian [address] [address]
== END ==
PROVIDERS: Family Provider Family Medicine; PCP Family Medicine; Referring Provider Family Medicine
DX: E78.5 Hyperlipidemia, unspecified (principal); R11.0 Nausea; R19.7 Diarrhea, unspecified; Z71.3 Dietary counseling and surveillance; Z68.34 Body mass index [BMI] 34.0-34.9, adult
CPT/HCPCS: 97803

== ENCOUNTER → 2025-06-19 13:32 | Outpatient (CLI) | payer OTHER, SELFPAY ==
--- NOTE | 2025-06-22 17:07 | DIET.OUTPTC ---
Dietary Outpatient Consult Consult Date:06/19/25 Assessment:?50 y F referred to dietitian for hyperlipidemia Remains steady with changes made to hellofresh meals. Has not experienced any weight loss on tirzepatide yet. Still eating breakfast and lunch, both with good protein/fiber soruces. -Nutrition Diagnosis:? (improving) Altered nutrition related lab values r/t high saturated fat content in hello fresh meals aeb review of nutrition facts on selected hello fresh meals Interventions:? Discussed and provided appropriate resources on the following: -Changes made -Activity -Diet recall -Reviewed folate supplement Goals: -<10g SFA on hello fresh meals, >3 g fiber, <600mg sodium, 45 g CHO -Continue with changes EER: 75 g protein (1g/kg of adjusted IBW), 28 g fiber Monitoring/Evaluations:? F/u in 1 month Electronically Signed by: Tomasa Brooke Clinical Dietitian [address] [address]
== END ==
PROVIDERS: Family Provider Family Medicine; PCP Family Medicine; Referring Provider Family Medicine
DX: E78.5 Hyperlipidemia, unspecified (principal); Z71.3 Dietary counseling and surveillance
CPT/HCPCS: 97803

== ENCOUNTER → 2025-11-22 09:24 | Outpatient (CLI) | payer OTHER, SELFPAY ==
--- NOTE | 2025-11-22 09:25 | DI.MG.S_ITS ---
MM screening mammo BI: 11/22/2025. BI-RADS: 1 CLINICAL: 50-year old female for bilateral screening mammogram. Tyrer-Cuzick lifetime risk of 6.9%. No personal or first-degree family history of breast cancer. PRIOR EXAMS 11/14/2024, 11/10/2023, 11/07/2022, 11/04/2021. MAMMOGRAPHY TECHNIQUE: 2D and 3D (tomosynthesis) digital mammographic views obtained, with additional images as needed for full coverage. Current study was also evaluated with a Computer Aided Detection (CAD) system. DENSITY B. There are scattered areas of fibroglandular density. MAMMOGRAPHY FINDINGS Bilateral: No suspicious mass, asymmetry, microcalcification, or other abnormality seen. IMPRESSION: * No evidence of malignancy. RECOMMENDATIONS Bilateral * Annual screening mammography. OVERALL ASSESSMENT CATEGORY BI-RADS-1: Negative. The [employer] recommends annual screening mammography beginning at age 40 for women with average risk of breast cancer. ELECTRONICALLY SIGNED: Di Sierra M.D. on 11/22/2025 at 05:18:06 PM PT Interpreting Station ID: [id number]
== END ==
LOC: MAMMO 09:25
PROVIDERS: PCP Family Medicine; Referring Provider Family Medicine; Visit Provider Family Medicine
DX: Z12.31 Encounter for screening mammogram for malignant neoplasm of breast (principal)
CPT/HCPCS: 77063; 77067